=== PATIENT | male | born 1980 | race Caucasian/White ===

== ENCOUNTER 2017-07-28 08:52 | Inpatient (IN) | payer MEDICARE, MEDICAID ==
[~2017-07-28] VITALS: Ht 171.4 cm; Wt 68.2 kg
[~2017-07-28 08:52] MED LIST: AMLO5TAB16 PO; CARV3.12 PO; DILT240C PO; DOXA4TAB3 PO; HYDR-4069 PO; METO-292 PO; ONDA4TAB6 PO; PANT-47 PO
[2017-07-28 10:26] LABS: BASOPHILS % (AUTO) 0.4 % (0-1); EOSINOPHILS # (AUTO) 0.6 X10'3 (0-0.9); EOSINOPHILS % (AUTO) 8.1 % (0-6); HEMATOCRIT 31.7 % (42.0-52.0); HEMOGLOBIN 11.1 g/dl (14.0-17.9); LYMPHOCYTES # (AUTO) 1.8 X10'3 (1.1-4.8); LYMPHOCYTES % (AUTO) 25.7 % (21-51); MEAN CORPUSCULAR HEMOGLOBIN 32.8 PG (27.0-31.0); MEAN CORPUSCULAR VOLUME 93.8 FL (78-98); MEAN PLATELET VOLUME 7.7 FL (7.4-10.4); MONOCYTES # (AUTO) 0.6 X10'3 (0-0.9); MONOCYTES % (AUTO) 8.3 % (2-12); NEUTROPHILS % (AUTO) 57.5 % (42-75); PLATELET COUNT 213 X10'3 (140-440); RED BLOOD COUNT 3.38 X10'6 (4.70-6.10); RED CELL DISTRIBUTION WIDTH 13.2 % (11.5-14.5)
[2017-07-28 10:41] LABS: ALANINE AMINOTRANSFERASE 61 U/L (12-78); ALBUMIN 3.6 G/DL (3.4-5.0); ALBUMIN/GLOBULIN RATIO 0.9 (1.1-1.5); ALKALINE PHOSPHATASE 88 IU/L (46-116); ANION GAP 13 (8-16); ASPARTATE AMINO TRANSFERASE 15 U/L (10-37); BILIRUBIN,TOTAL 0.4 MG/DL (0.1-1.0); BLOOD UREA NITROGEN 84 MG/DL (7-18); BUN/CREATININE RATIO 6.9 (5.4-32.0); CALCIUM 7.8 MG/DL (8.5-10.1); CHLORIDE 99 MMOL/L (99-107); CREATININE 12.21 MG/DL (0.60-1.10); GLUCOSE 102 MG/DL (70-104); MAGNESIUM 3.5 MG/DL (1.5-2.4); SODIUM 136 MMOL/L (135-145); TOTAL CARBON DIOXIDE 24.2 MMOL/L (24-32); TOTAL PROTEIN 7.4 G/DL (6.4-8.2); eGFR 5 ML/MIN
[2017-07-28 10:43] LABS: POTASSIUM 7.6 MMOL/L (3.5-5.1)
[2017-07-28] MEDS ORDERED: sodium bicarbonate (0.9mEq/ml) 44.6 mEq/50ml syringe IV ONE (10:55)
[2017-07-28] MEDS ORDERED: dextrose 50%-water 50ml dispensing syringe IV ONE (10:55)
[2017-07-28] MEDS ORDERED: insulin regular, human 10 units/0.1 ml syringe IV ONE (10:55)
[2017-07-28] MEDS ORDERED: sodium polystyrene sulfonate 15gm/60ml oral suspension PO ONE (10:55)
[2017-07-28] MEDS ORDERED: sodium bicarbonate (8.4%) 1 mEq/ml syringe IV ONE (11:15)
[2017-07-28] MEDS ORDERED: acetaminophen 325mg tablet PO PRN (11:25)
[2017-07-28] MEDS ORDERED: heparin 1,000unit/ml 10ml vial 10 ML IV ONE (11:27)
[2017-07-28] MEDS ORDERED: normal saline 1000ml 250 ML IV PRN (11:27)
[2017-07-28] MEDS ORDERED: epoetin 20,000 units/ml inj IV ONE (11:30)
[2017-07-28] MEDS ORDERED: LIDOcaine 1% (10mg/ml) 2ml vial SQ ONE (11:30)
[2017-07-28] MEDS ORDERED: VALS80TA26 (12:00)
[2017-07-28] MEDS ORDERED: HYDR-3964 (12:00)
[2017-07-28] MEDS ORDERED: DILT360C30 (12:00)
[2017-07-28] MEDS ORDERED: ondansetron/PF 4mg/2ml inj IV ONE (13:05)
[2017-07-28 13:40] VITALS: BP 160/74
[2017-07-28] MEDS: HYDROcodone/acetaminophen 5mg/325mg tablet PO PRN ×2 (13:50→20:35)
[2017-07-28 15:00] VITALS: BP 139/68
[2017-07-28 19:00] VITALS: BP 136/87
[2017-07-28] MEDS: heparin, porcine 5000 units/ml vial SQ SCH (20:35)
[2017-07-28 23:00] VITALS: BP 176/70
[2017-07-29 03:00] VITALS: BP 122/70
[2017-07-29 06:20] LABS: BASOPHILS % (AUTO) 0.4 % (0-1); EOSINOPHILS # (AUTO) 0.5 X10'3 (0-0.9); HEMATOCRIT 32.2 % (42.0-52.0); HEMOGLOBIN 11.3 g/dl (14.0-17.9); LYMPHOCYTES # (AUTO) 2.2 X10'3 (1.1-4.8); LYMPHOCYTES % (AUTO) 33.5 % (21-51); MEAN CORPUSCULAR HEMOGLOBIN 32.9 PG (27.0-31.0); MEAN PLATELET VOLUME 7.9 FL (7.4-10.4); MONOCYTES # (AUTO) 0.6 X10'3 (0-0.9); MONOCYTES % (AUTO) 8.9 % (2-12); NEUTROPHILS # (AUTO) 3.3 X10'3 (1.8-7.7); NEUTROPHILS % (AUTO) 50.2 % (42-75); PLATELET COUNT 208 X10'3 (140-440); RED BLOOD COUNT 3.42 X10'6 (4.70-6.10); RED CELL DISTRIBUTION WIDTH 13.3 % (11.5-14.5); WHITE BLOOD COUNT 6.6 X10'3 (4.5-11.0)
[2017-07-29 06:32] LABS: ALANINE AMINOTRANSFERASE 56 U/L (12-78); ALBUMIN 3.3 G/DL (3.4-5.0); ALBUMIN/GLOBULIN RATIO 0.9 (1.1-1.5); ALKALINE PHOSPHATASE 85 IU/L (46-116); ANION GAP 10 (8-16); ASPARTATE AMINO TRANSFERASE 18 U/L (10-37); BILIRUBIN,TOTAL 0.4 MG/DL (0.1-1.0); BLOOD UREA NITROGEN 46 MG/DL (7-18); BUN/CREATININE RATIO 5.6 (5.4-32.0); CALCIUM 7.8 MG/DL (8.5-10.1); CHLORIDE 100 MMOL/L (99-107); CREATININE 8.17 MG/DL (0.60-1.10); GLUCOSE 88 MG/DL (70-104); SODIUM 138 MMOL/L (135-145); TOTAL CARBON DIOXIDE 28.1 MMOL/L (24-32); TOTAL PROTEIN 7.1 G/DL (6.4-8.2); eGFR 7 ML/MIN
[2017-07-29 07:00] VITALS: BP 136/91
[2017-07-29] MEDS: ondansetron/PF 4mg/2ml inj IV PRN ×2 (07:05→16:46)
[2017-07-29] MEDS: heparin, porcine 5000 units/ml vial SQ SCH ×2 (07:57→20:54)
[2017-07-29] MEDS ORDERED: heparin 1,000unit/ml 10ml vial 10 ML IV ONE (08:48)
[2017-07-29] MEDS ORDERED: normal saline 1000ml 250 ML IV PRN (08:48)
[2017-07-29] MEDS ORDERED: LIDOcaine 1% (10mg/ml) 2ml vial SQ ONE (08:50)
[2017-07-29] MEDS ORDERED: epoetin 20,000 units/ml inj IV ONE (08:50)
[2017-07-29] MEDS: HYDROcodone/acetaminophen 5mg/325mg tablet PO PRN (08:52)
[2017-07-29] MEDS ORDERED: ondansetron 4mg rapidly disintigrating tab PO PRN (10:30)
[2017-07-29] MEDS ORDERED: HYDROcodone/acetaminophen 5mg/325mg tablet PO PRN (10:30)
[2017-07-29 11:00] VITALS: BP 151/86
[2017-07-29] MEDS: valsartan 80mg tablet PO SCH (12:00)
[2017-07-29] MEDS: diltiazem CD 180mg cap (once-daily) PO SCH (12:00)
[2017-07-29 15:00] VITALS: BP 165/102
[2017-07-29] MEDS ORDERED: diltiazem CD 180mg cap (once-daily) PO ONE (15:50)
[2017-07-29] MEDS ORDERED: valsartan 80mg tablet PO ONE (15:50)
[2017-07-29 18:00] VITALS: BP 144/90
[2017-07-29 22:00] VITALS: BP 141/79
[2017-07-30 02:00] VITALS: BP 138/60
[2017-07-30] MEDS: ondansetron/PF 4mg/2ml inj IV PRN ×2 (05:45→14:12)
[2017-07-30 06:00] VITALS: BP 162/85
[2017-07-30 06:01] LABS: BASOPHILS % (AUTO) 0.5 % (0-1); EOSINOPHILS # (AUTO) 0.5 X10'3 (0-0.9); EOSINOPHILS % (AUTO) 7.4 % (0-6); LYMPHOCYTES # (AUTO) 2.1 X10'3 (1.1-4.8); LYMPHOCYTES % (AUTO) 31.1 % (21-51); MEAN CORPUSCULAR HEMOGLOBIN 33.2 PG (27.0-31.0); MEAN CORPUSCULAR HGB CONC 35.2 % (33.0-36.5); MEAN CORPUSCULAR VOLUME 94.5 FL (78-98); MEAN PLATELET VOLUME 7.6 FL (7.4-10.4); MONOCYTES # (AUTO) 0.6 X10'3 (0-0.9); MONOCYTES % (AUTO) 9.1 % (2-12); NEUTROPHILS # (AUTO) 3.5 X10'3 (1.8-7.7); NEUTROPHILS % (AUTO) 51.9 % (42-75); PLATELET COUNT 243 X10'3 (140-440); RED BLOOD COUNT 3.92 X10'6 (4.70-6.10); RED CELL DISTRIBUTION WIDTH 13.5 % (11.5-14.5); WHITE BLOOD COUNT 6.8 X10'3 (4.5-11.0)
[2017-07-30] MEDS: HYDROcodone/acetaminophen 5mg/325mg tablet PO PRN ×2 (06:16→12:33)
[2017-07-30 06:23] LABS: ALANINE AMINOTRANSFERASE 76 U/L (12-78); ALBUMIN 3.8 G/DL (3.4-5.0); ALBUMIN/GLOBULIN RATIO 0.8 (1.1-1.5); ALKALINE PHOSPHATASE 93 IU/L (46-116); ANION GAP 12 (8-16); ASPARTATE AMINO TRANSFERASE 27 U/L (10-37); BILIRUBIN,TOTAL 0.5 MG/DL (0.1-1.0); BLOOD UREA NITROGEN 34 MG/DL (7-18); BUN/CREATININE RATIO 4.8 (5.4-32.0); CALCIUM 9.1 MG/DL (8.5-10.1); CHLORIDE 99 MMOL/L (99-107); CREATININE 7.15 MG/DL (0.60-1.10); GLUCOSE 89 MG/DL (70-104); POTASSIUM 5.2 MMOL/L (3.5-5.1); SODIUM 139 MMOL/L (135-145); TOTAL PROTEIN 8.4 G/DL (6.4-8.2); eGFR 9 ML/MIN
[2017-07-30] MEDS: valsartan 80mg tablet PO SCH (08:15)
[2017-07-30] MEDS: diltiazem CD 180mg cap (once-daily) PO SCH (08:15)
[2017-07-30] MEDS: heparin, porcine 5000 units/ml vial SQ SCH (08:17)
[2017-07-30 11:00] VITALS: BP 152/83
[2017-07-30] MEDS ORDERED: DIO80T PO (13:13)
[2017-07-30 13:25] LABS: HBSAG SCREEN Negative (Negative)
== END 2017-07-30 15:02 | disposition home or self-care (01) | DRG 640 ==
LOC: ER 08:53 → ED HOLD 11:22 → EDBEDREQ 12:32 → PCU 3S 13:49
PROC: 5A1D70Z Performance of Urinary Filtration, Intermittent, Less than 6 Hours Per Day (ICD-10-PCS; 2017-07-28)
PROC: 5A1D70Z Performance of Urinary Filtration, Intermittent, Less than 6 Hours Per Day (ICD-10-PCS; principal; 2017-07-29)
DX: E87.5 Hyperkalemia (principal); N18.6 End stage renal disease; I12.0 Hypertensive chronic kidney disease with stage 5 chronic kidney disease or end stage renal disease; F31.30 Bipolar disorder, current episode depressed, mild or moderate severity, unspecified; F41.9 Anxiety disorder, unspecified; G89.29 Other chronic pain; M54.9 Dorsalgia, unspecified; J40 Bronchitis, not specified as acute or chronic; B19.20 Unspecified viral hepatitis C without hepatic coma; F15.90 Other stimulant use, unspecified, uncomplicated; Z99.2 Dependence on renal dialysis; Z56.0 Unemployment, unspecified; Z91.15 Patient's noncompliance with renal dialysis; Z88.6 Allergy status to analgesic agent; Z88.1 Allergy status to other antibiotic agents; Z88.8 Allergy status to other drugs, medicaments and biological substances; Z80.9 Family history of malignant neoplasm, unspecified; Z80.6 Family history of leukemia; Z82.0 Family history of epilepsy and other diseases of the nervous system; Z82.49 Family history of ischemic heart disease and other diseases of the circulatory system
CPT/HCPCS: 36415; 71046; 80053; 82948; 83735; 85025; 87070; 87340; 93005; 99291; A6402; G0257; J0885; J1644; J1815; J2405; J3490; J7030

== ENCOUNTER 2017-10-16 19:56 | Emergency (ER) | payer MEDICARE, MEDICAID ==
[~2017-10-16] VITALS: Ht 172.7 cm; Wt 71.0 kg
[~2017-10-16 19:56] MED LIST changes: -AMLO5TAB16 PO; -CARV3.12 PO; -DILT240C PO; +DILT360C30; +DIO80T PO; -DOXA4TAB3 PO; +HYDR-3964; -HYDR-4069 PO; -METO-292 PO; -PANT-47 PO; +VALS80TA31
[2017-10-16 23:52] LABS: BASOPHILS % (AUTO) 0.5 % (0-1); EOSINOPHILS # (AUTO) 0.2 X10'3 (0-0.9); EOSINOPHILS % (AUTO) 3.7 % (0-6); HEMATOCRIT 36.8 % (42.0-52.0); HEMOGLOBIN 12.5 g/dl (14.0-17.9); LYMPHOCYTES # (AUTO) 2.1 X10'3 (1.1-4.8); LYMPHOCYTES % (AUTO) 33.9 % (21-51); MEAN CORPUSCULAR HEMOGLOBIN 32.6 PG (27.0-31.0); MEAN CORPUSCULAR HGB CONC 33.9 % (33.0-36.5); MEAN CORPUSCULAR VOLUME 96.3 FL (78-98); MEAN PLATELET VOLUME 8.4 FL (7.4-10.4); MONOCYTES # (AUTO) 0.5 X10'3 (0-0.9); MONOCYTES % (AUTO) 8.7 % (2-12); NEUTROPHILS # (AUTO) 3.3 X10'3 (1.8-7.7); NEUTROPHILS % (AUTO) 53.2 % (42-75); PLATELET COUNT 194 X10'3 (140-440); RED BLOOD COUNT 3.82 X10'6 (4.70-6.10); RED CELL DISTRIBUTION WIDTH 13.1 % (11.5-14.5); WHITE BLOOD COUNT 6.3 X10'3 (4.5-11.0)
[2017-10-16 23:53] LABS: ALANINE AMINOTRANSFERASE 59 U/L (12-78); ALBUMIN 3.8 G/DL (3.4-5.0); ALBUMIN/GLOBULIN RATIO 0.9 (1.1-1.5); ALKALINE PHOSPHATASE 96 IU/L (46-116); ANION GAP 6 (8-16); ASPARTATE AMINO TRANSFERASE 21 U/L (10-37); BILIRUBIN,TOTAL 0.4 MG/DL (0.1-1.0); BLOOD UREA NITROGEN 18 MG/DL (7-18); CALCIUM 8.8 MG/DL (8.5-10.1); CHLORIDE 101 MMOL/L (99-107); CREATININE 5.94 MG/DL (0.60-1.10); GLUCOSE 112 MG/DL (70-104); MAGNESIUM 2.5 MG/DL (1.5-2.4); POTASSIUM 4.1 MMOL/L (3.5-5.1); SODIUM 140 MMOL/L (135-145); TOTAL CARBON DIOXIDE 33.5 MMOL/L (24-32); TOTAL PROTEIN 7.9 G/DL (6.4-8.2); eGFR 11 ML/MIN
[2017-10-17 00:16] VITALS: BP 184/104
== END 2017-10-17 00:20 | disposition home or self-care (01) ==
LOC: ER 19:56
DX: I12.0 Hypertensive chronic kidney disease with stage 5 chronic kidney disease or end stage renal disease (principal); N18.6 End stage renal disease; G89.29 Other chronic pain; F15.10 Other stimulant abuse, uncomplicated; Z56.0 Unemployment, unspecified; Z87.891 Personal history of nicotine dependence; Z88.5 Allergy status to narcotic agent; Z88.8 Allergy status to other drugs, medicaments and biological substances; Z88.1 Allergy status to other antibiotic agents; Z98.890 Other specified postprocedural states; Z99.2 Dependence on renal dialysis
CPT/HCPCS: 36415; 80053; 83735; 84100; 85025; 93005; 99285

== ENCOUNTER 2017-10-31 13:53 | Emergency (ER) | payer MEDICARE, MEDICAID ==
[~2017-10-31] VITALS: Ht 167.6 cm; Wt 78.0 kg
[2017-10-31] MEDS ORDERED: LORazepam 2 mg/ml vial IV ONE (14:10)
[2017-10-31] MEDS ORDERED: ondansetron/PF 4mg/2ml inj IV ONE (14:15)
[2017-10-31] MEDS ORDERED: ketorolac trometh. 30mg/ml inj. IV ONE (14:40)
[2017-10-31 14:47] LABS: BASOPHILS % (AUTO) 0.3 % (0-1); EOSINOPHILS # (AUTO) 0.2 X10'3 (0-0.9); EOSINOPHILS % (AUTO) 2.6 % (0-6); HEMATOCRIT 31.7 % (42.0-52.0); HEMOGLOBIN 11.1 g/dl (14.0-17.9); LYMPHOCYTES # (AUTO) 1.2 X10'3 (1.1-4.8); LYMPHOCYTES % (AUTO) 16.8 % (21-51); MEAN CORPUSCULAR HEMOGLOBIN 33.2 PG (27.0-31.0); MEAN PLATELET VOLUME 8.2 FL (7.4-10.4); MONOCYTES # (AUTO) 0.4 X10'3 (0-0.9); MONOCYTES % (AUTO) 6.1 % (2-12); NEUTROPHILS # (AUTO) 5.3 X10'3 (1.8-7.7); NEUTROPHILS % (AUTO) 74.2 % (42-75); PLATELET COUNT 229 X10'3 (140-440); RED BLOOD COUNT 3.34 X10'6 (4.70-6.10); RED CELL DISTRIBUTION WIDTH 12.9 % (11.5-14.5); WHITE BLOOD COUNT 7.2 X10'3 (4.5-11.0)
[2017-10-31 14:56] LABS: PARTIAL THROMBOPLASTIN TIME 24 SECONDS (22-32); PROTHROMBIN TIME 10.7 SECONDS (9.0-12.0)
[2017-10-31 15:00] LABS: ALANINE AMINOTRANSFERASE 64 U/L (12-78); ALBUMIN 3.9 G/DL (3.4-5.0); ALKALINE PHOSPHATASE 94 IU/L (46-116); ANION GAP 14 (8-16); ASPARTATE AMINO TRANSFERASE 20 U/L (10-37); BILIRUBIN,TOTAL 0.4 MG/DL (0.1-1.0); BLOOD UREA NITROGEN 34 MG/DL (7-18); BUN/CREATININE RATIO 4.2 (5.4-32.0); CALCIUM 8.8 MG/DL (8.5-10.1); CHLORIDE 102 MMOL/L (99-107); CREATININE 8.17 MG/DL (0.60-1.10); GLUCOSE 102 MG/DL (70-104); MAGNESIUM 2.3 MG/DL (1.5-2.4); POTASSIUM 3.9 MMOL/L (3.5-5.1); SODIUM 143 MMOL/L (135-145); TOTAL CARBON DIOXIDE 26.7 MMOL/L (24-32); TOTAL PROTEIN 7.8 G/DL (6.4-8.2); eGFR 7 ML/MIN
[2017-10-31] MEDS ORDERED: acetaminophen 325mg tablet PO ONE (15:40)
[2017-10-31 18:08] VITALS: BP 122/68
== END 2017-10-31 18:10 | disposition home or self-care (01) ==
LOC: ER 13:53
DX: I12.9 Hypertensive chronic kidney disease with stage 1 through stage 4 chronic kidney disease, or unspecified chronic kidney disease (principal); N18.9 Chronic kidney disease, unspecified; G89.29 Other chronic pain; F15.90 Other stimulant use, unspecified, uncomplicated; Z98.890 Other specified postprocedural states; Z86.19 Personal history of other infectious and parasitic diseases; Z56.0 Unemployment, unspecified; Z88.5 Allergy status to narcotic agent; Z88.8 Allergy status to other drugs, medicaments and biological substances; Z88.1 Allergy status to other antibiotic agents; Z79.899 Other long term (current) drug therapy; Z99.2 Dependence on renal dialysis
CPT/HCPCS: 36415; 71045; 80053; 83735; 84484; 85025; 85610; 85730; 93005; 96374; 96375; 99285; J1885; J2060; J2405

== ENCOUNTER 2018-03-13 13:04 | Inpatient (IN) | payer MEDICARE, MEDICAID ==
[~2018-03-13] VITALS: Ht 180.3 cm; Wt 75.8 kg
[~2018-03-13 13:04] MED LIST changes: -VALS80TA31; +VALS80TA32 PO
[2018-03-13 14:17] LABS: BASOPHILS # (AUTO) 0.1 X10'3 (0-0.2); BASOPHILS % (AUTO) 0.7 % (0-1); EOSINOPHILS # (AUTO) 0.3 X10'3 (0-0.9); EOSINOPHILS % (AUTO) 3.2 % (0-6); HEMATOCRIT 27.1 % (42.0-52.0); HEMOGLOBIN 9.3 g/dl (14.0-17.9); LYMPHOCYTES # (AUTO) 1.8 X10'3 (1.1-4.8); LYMPHOCYTES % (AUTO) 21.8 % (21-51); MEAN CORPUSCULAR HEMOGLOBIN 32.8 PG (27.0-31.0); MEAN CORPUSCULAR HGB CONC 34.5 % (33.0-36.5); MEAN CORPUSCULAR VOLUME 95.1 FL (78-98); MEAN PLATELET VOLUME 8.2 FL (7.4-10.4); MONOCYTES # (AUTO) 0.4 X10'3 (0-0.9); MONOCYTES % (AUTO) 4.6 % (2-12); NEUTROPHILS # (AUTO) 5.5 X10'3 (1.8-7.7); NEUTROPHILS % (AUTO) 69.7 % (42-75); PLATELET COUNT 183 X10'3 (140-440); RED BLOOD COUNT 2.85 X10'6 (4.70-6.10); RED CELL DISTRIBUTION WIDTH 13.1 % (11.5-14.5); WHITE BLOOD COUNT 8.1 X10'3 (4.5-11.0)
[2018-03-13 14:30] LABS: ALANINE AMINOTRANSFERASE 37 U/L (12-78); ALBUMIN 3.1 G/DL (3.4-5.0); ALBUMIN/GLOBULIN RATIO 0.9 (1.1-1.5); ALKALINE PHOSPHATASE 74 IU/L (46-116); ANION GAP 13 (8-16); ASPARTATE AMINO TRANSFERASE 12 U/L (10-37); BILIRUBIN,TOTAL 0.3 MG/DL (0.1-1.0); BLOOD UREA NITROGEN 88 MG/DL (7-18); BUN/CREATININE RATIO 7.6 (5.4-32.0); CALCIUM 7.7 MG/DL (8.5-10.1); CHLORIDE 102 MMOL/L (99-107); CREATININE 11.53 MG/DL (0.60-1.10); GLUCOSE 116 MG/DL (70-104); PHOSPHORUS 7.1 MG/DL (2.3-4.5); SODIUM 139 MMOL/L (135-145); TOTAL CARBON DIOXIDE 24.3 MMOL/L (24-32); TOTAL PROTEIN 6.4 G/DL (6.4-8.2); eGFR 5 ML/MIN
[2018-03-13 14:33] LABS: POTASSIUM 7.2 MMOL/L (3.5-5.1)
[2018-03-13] MEDS ORDERED: insulin regular, human 10 units/0.1 ml syringe IV ONE (14:40)
[2018-03-13] MEDS ORDERED: dextrose 50%-water 50ml dispensing syringe IV ONE (14:40)
[2018-03-13] MEDS ORDERED: calcium gluconate inj. 1 GM in normal saline 100ml IV soln 100 ML IV ONE (15:00)
[2018-03-13] MEDS ORDERED: normal saline 1000ml 250 ML IV PRN (15:06)
[2018-03-13] MEDS ORDERED: LIDOcaine 1% (10mg/ml) 2ml vial SQ ONE (15:10)
[2018-03-13] MEDS ORDERED: DILT180C PO (16:05)
[2018-03-13] MEDS ORDERED: CALC667T5 PO (16:10)
[2018-03-13] MEDS ORDERED: DOXA2TAB2 PO (16:10)
[2018-03-13] MEDS ORDERED: DOCU-28 PO (16:10)
[2018-03-13] MEDS ORDERED: VALS320T2 PO (16:10)
[2018-03-13] MEDS ORDERED: POLY17PO10 PO (16:11)
[2018-03-13] MEDS ORDERED: PANT20TA2 PO (16:12)
[2018-03-13 18:00] VITALS: BP 184/99
[2018-03-13] MEDS ORDERED: HYDROcodone/acetaminophen 5mg/325mg tablet PO ONE (18:50)
[2018-03-13 20:15] VITALS: BP 155/87
[2018-03-13 21:42] LABS: ALBUMIN 3.1 G/DL (3.4-5.0); ANION GAP 7 (8-16); BLOOD UREA NITROGEN 40 MG/DL (7-18); BUN/CREATININE RATIO 6.2 (5.4-32.0); CALCIUM 7.9 MG/DL (8.5-10.1); CHLORIDE 100 MMOL/L (99-107); CREATININE 6.42 MG/DL (0.60-1.10); GLUCOSE 123 MG/DL (70-104); POTASSIUM 3.6 MMOL/L (3.5-5.1); SODIUM 139 MMOL/L (135-145); eGFR 10 ML/MIN
[2018-03-13 22:00] VITALS: BP 183/99
[2018-03-14] VITALS (8 sets, daily range): BP systolic 136–190; BP diastolic 76–109
[2018-03-14] MEDS ORDERED: losartan 50mg tablet PO ONE (07:40)
[2018-03-14 08:45] LABS: ALANINE AMINOTRANSFERASE 42 U/L (12-78); ALBUMIN 3.2 G/DL (3.4-5.0); ALBUMIN/GLOBULIN RATIO 0.9 (1.1-1.5); ALKALINE PHOSPHATASE 81 IU/L (46-116); ANION GAP 9 (8-16); ASPARTATE AMINO TRANSFERASE 17 U/L (10-37); BILIRUBIN,TOTAL 0.3 MG/DL (0.1-1.0); BLOOD UREA NITROGEN 48 MG/DL (7-18); BUN/CREATININE RATIO 5.9 (5.4-32.0); CALCIUM 7.9 MG/DL (8.5-10.1); CHLORIDE 101 MMOL/L (99-107); CREATININE 8.08 MG/DL (0.60-1.10); GLUCOSE 114 MG/DL (70-104); MAGNESIUM 2.4 MG/DL (1.5-2.4); POTASSIUM 5.7 MMOL/L (3.5-5.1); SODIUM 140 MMOL/L (135-145); TOTAL CARBON DIOXIDE 29.6 MMOL/L (24-32); TOTAL PROTEIN 6.9 G/DL (6.4-8.2); eGFR 8 ML/MIN
[2018-03-14] MEDS ORDERED: HYDROcodone/acetaminophen 5mg/325mg tablet PO ONE (10:20)
[2018-03-14 11:25] LABS: PHOSPHORUS 7.1 MG/DL (2.3-4.5)
[2018-03-14] MEDS: ondansetron/PF 4mg/2ml inj IV PRN (11:47)
[2018-03-14] MEDS: pantoprazole 40mg Tablet.DR PO SCH (11:59)
[2018-03-14] MEDS: heparin, porcine 5000 units/ml vial SQ SCH ×2 (11:59→19:57)
[2018-03-14] MEDS ORDERED: polyethylene glycol 3350 17gm powd pack PO PRN (12:20)
[2018-03-14] MEDS ORDERED: calcium acetate 667mg (PhosLO) capsule PO PRN (12:20)
[2018-03-14] MEDS ORDERED: normal saline 1000ml 250 ML IV PRN (15:53)
[2018-03-14] MEDS ORDERED: heparin 1,000unit/ml 10ml vial 10 ML IV ONE (15:53)
[2018-03-14] MEDS: diltiazem CD 180mg cap (once-daily) PO SCH (16:18)
[2018-03-14] MEDS: doxazosin mesylate 2mg tablet PO SCH (16:19)
[2018-03-14] MEDS: HYDROcodone/acetaminophen 5mg/325mg tablet PO PRN (19:56)
[2018-03-14] MEDS: docusate sod 100mg capsule PO SCH (19:56)
[2018-03-14] MEDS ORDERED: diphenhydrAMINE 25mg capsule PO PRN (20:55)
[2018-03-15 03:00] VITALS: BP 144/87
[2018-03-15 05:49] LABS: BASOPHILS % (AUTO) 0.4 % (0-1); EOSINOPHILS # (AUTO) 0.6 X10'3 (0-0.9); EOSINOPHILS % (AUTO) 10.8 % (0-6); HEMATOCRIT 26.8 % (42.0-52.0); HEMOGLOBIN 9.5 g/dl (14.0-17.9); LYMPHOCYTES # (AUTO) 2.3 X10'3 (1.1-4.8); LYMPHOCYTES % (AUTO) 41.8 % (21-51); MEAN CORPUSCULAR HEMOGLOBIN 33.4 PG (27.0-31.0); MEAN CORPUSCULAR HGB CONC 35.3 % (33.0-36.5); MEAN CORPUSCULAR VOLUME 94.8 FL (78-98); MEAN PLATELET VOLUME 8.9 FL (7.4-10.4); MONOCYTES # (AUTO) 0.5 X10'3 (0-0.9); MONOCYTES % (AUTO) 9.2 % (2-12); NEUTROPHILS # (AUTO) 2.1 X10'3 (1.8-7.7); NEUTROPHILS % (AUTO) 37.8 % (42-75); PLATELET COUNT 156 X10'3 (140-440); RED BLOOD COUNT 2.83 X10'6 (4.70-6.10); RED CELL DISTRIBUTION WIDTH 12.9 % (11.5-14.5); WHITE BLOOD COUNT 5.5 X10'3 (4.5-11.0)
[2018-03-15 06:01] LABS: INR 1.1 INR; PARTIAL THROMBOPLASTIN TIME 27 SECONDS (22-32); PROTHROMBIN TIME 10.9 SECONDS (9.0-12.0)
[2018-03-15 06:18] LABS: ALANINE AMINOTRANSFERASE 39 U/L (12-78); ALBUMIN 2.8 G/DL (3.4-5.0); ALBUMIN/GLOBULIN RATIO 0.8 (1.1-1.5); ALKALINE PHOSPHATASE 72 IU/L (46-116); ANION GAP 12 (8-16); ASPARTATE AMINO TRANSFERASE 14 U/L (10-37); BILIRUBIN,TOTAL 0.2 MG/DL (0.1-1.0); BLOOD UREA NITROGEN 63 MG/DL (7-18); BUN/CREATININE RATIO 6.3 (5.4-32.0); CALCIUM 7.1 MG/DL (8.5-10.1); CHLORIDE 102 MMOL/L (99-107); CREATININE 10.01 MG/DL (0.60-1.10); GLUCOSE 87 MG/DL (70-104); MAGNESIUM 2.6 MG/DL (1.5-2.4); PHOSPHORUS 8.5 MG/DL (2.3-4.5); POTASSIUM 5.5 MMOL/L (3.5-5.1); SODIUM 140 MMOL/L (135-145); TOTAL CARBON DIOXIDE 26.2 MMOL/L (24-32); TOTAL PROTEIN 6.2 G/DL (6.4-8.2); TROPONIN I < 0.04 NG/ML (0.0-0.05); eGFR 6 ML/MIN
[2018-03-15 07:00] VITALS: BP 144/84
[2018-03-15 07:54] VITALS: BP 163/94
[2018-03-15] MEDS: docusate sod 100mg capsule PO SCH (07:56)
[2018-03-15] MEDS: pantoprazole 40mg Tablet.DR PO SCH (07:56)
[2018-03-15] MEDS: diltiazem CD 180mg cap (once-daily) PO SCH (07:57)
[2018-03-15] MEDS: HYDROcodone/acetaminophen 5mg/325mg tablet PO PRN (07:58)
[2018-03-15] MEDS: doxazosin mesylate 2mg tablet PO SCH (07:58)
[2018-03-15] MEDS ORDERED: losartan 50mg tablet PO SCH (08:00)
[2018-03-15] MEDS: heparin, porcine 5000 units/ml vial SQ SCH (08:05)
[2018-03-15] MEDS ORDERED: LIDOcaine 1% (10mg/ml) 2ml vial SQ ONE (08:20)
[2018-03-15] MEDS: ondansetron/PF 4mg/2ml inj IV PRN (10:42)
[2018-03-15 11:00] VITALS: BP 164/102
[2018-03-15] MEDS ORDERED: calcium acetate 667mg (PhosLO) capsule PO SCH (13:00)
[2018-03-15] MEDS ORDERED: PHO667C PO (13:41)
[2018-03-15 14:40] VITALS: BP 166/97
== END 2018-03-15 14:59 | disposition home or self-care (01) | DRG 640 ==
LOC: ER 13:04 → ED HOLD 15:13 → PCU 3S 16:29
PROVIDERS: ADMIT Emergency Medicine; ATTEND Internal Medicine Critical Care Medicine
PROC: 5A1D70Z Performance of Urinary Filtration, Intermittent, Less than 6 Hours Per Day (ICD-10-PCS; principal; 2018-03-13)
PROC: 5A1D70Z Performance of Urinary Filtration, Intermittent, Less than 6 Hours Per Day (ICD-10-PCS; 2018-03-15)
DX: E87.5 Hyperkalemia (principal); N18.6 End stage renal disease; I12.0 Hypertensive chronic kidney disease with stage 5 chronic kidney disease or end stage renal disease; E83.39 Other disorders of phosphorus metabolism; K21.9 Gastro-esophageal reflux disease without esophagitis; G89.29 Other chronic pain; F41.9 Anxiety disorder, unspecified; E87.70 Fluid overload, unspecified; F32.9 Major depressive disorder, single episode, unspecified; B19.20 Unspecified viral hepatitis C without hepatic coma; I25.2 Old myocardial infarction; Z95.1 Presence of aortocoronary bypass graft; Z99.2 Dependence on renal dialysis; Z79.899 Other long term (current) drug therapy; Z82.49 Family history of ischemic heart disease and other diseases of the circulatory system; Z80.6 Family history of leukemia; Z82.0 Family history of epilepsy and other diseases of the nervous system
CPT/HCPCS: 36415; 71045; 80048; 80053; 83735; 84100; 84484; 85025; 85610; 85730; 93005; 93306; 96374; 96375; 99285; G0257; J0610; J1644; J1815; J2405; J3490; J7030; Q0163

== ENCOUNTER 2018-04-03 09:19 | Inpatient (IN) | payer MEDICARE, MEDICAID ==
[~2018-04-03] VITALS: Ht 175.3 cm; Wt 70.1 kg
[~2018-04-03 09:19] MED LIST changes: +DILT180C PO; -DILT360C30; -DIO80T PO; +DOCU-28 PO; +DOXA2TAB2 PO; +PANT20TA2 PO; +PHO667C PO; +POLY17PO10 PO; +VALS320T2 PO; -VALS80TA32 PO
[2018-04-03 09:51] LABS: BASOPHILS % (AUTO) 0.6 % (0-1); EOSINOPHILS # (AUTO) 0.8 X10'3 (0-0.9); HEMATOCRIT 26.2 % (42.0-52.0); HEMOGLOBIN 8.8 g/dl (14.0-17.9); LYMPHOCYTES # (AUTO) 2.1 X10'3 (1.1-4.8); LYMPHOCYTES % (AUTO) 27.7 % (21-51); MEAN CORPUSCULAR HEMOGLOBIN 31.7 PG (27.0-31.0); MEAN CORPUSCULAR HGB CONC 33.5 % (33.0-36.5); MEAN CORPUSCULAR VOLUME 94.7 FL (78-98); MEAN PLATELET VOLUME 7.6 FL (7.4-10.4); MONOCYTES # (AUTO) 0.6 X10'3 (0-0.9); MONOCYTES % (AUTO) 7.9 % (2-12); NEUTROPHILS % (AUTO) 52.8 % (42-75); PLATELET COUNT 219 X10'3 (140-440); RED BLOOD COUNT 2.77 X10'6 (4.70-6.10); RED CELL DISTRIBUTION WIDTH 13.6 % (11.5-14.5); WHITE BLOOD COUNT 7.6 X10'3 (4.5-11.0)
[2018-04-03 10:07] LABS: ALANINE AMINOTRANSFERASE 36 U/L (12-78); ALBUMIN 3.4 G/DL (3.4-5.0); ALBUMIN/GLOBULIN RATIO 0.9 (1.1-1.5); ALKALINE PHOSPHATASE 83 IU/L (46-116); ANION GAP 15 (8-16); ASPARTATE AMINO TRANSFERASE 8 U/L (10-37); BILIRUBIN,TOTAL 0.3 MG/DL (0.1-1.0); BLOOD UREA NITROGEN 97 MG/DL (7-18); BUN/CREATININE RATIO 5.8 (5.4-32.0); CALCIUM 7.8 MG/DL (8.5-10.1); CHLORIDE 101 MMOL/L (99-107); GLUCOSE 92 MG/DL (70-104); MAGNESIUM 3.4 MG/DL (1.5-2.4); PHOSPHORUS 6.5 MG/DL (2.3-4.5); POTASSIUM 5.9 MMOL/L (3.5-5.1); SODIUM 138 MMOL/L (135-145); TOTAL CARBON DIOXIDE 22.2 MMOL/L (24-32); TOTAL PROTEIN 7.1 G/DL (6.4-8.2); eGFR 3 ML/MIN
[2018-04-03] MEDS ORDERED: insulin regular, human 10 units/0.1 ml syringe IV ONE (10:45)
[2018-04-03] MEDS ORDERED: dextrose 50%-water 50ml dispensing syringe IV ONE (10:45)
[2018-04-03] MEDS ORDERED: PHO667C PO (10:45)
[2018-04-03] MEDS ORDERED: normal saline 1000ml 250 ML IV PRN (10:57)
[2018-04-03] MEDS ORDERED: LIDOcaine 1% (10mg/ml) 2ml vial SQ ONE (11:00)
[2018-04-03] MEDS ORDERED: epoetin 20,000 units/ml inj IV ONE (11:00)
[2018-04-03] MEDS ORDERED: heparin 1,000 units/ml 10ml inj IV ONE (11:00)
[2018-04-03] MEDS ORDERED: polyethylene glycol 3350 17gm powd pack PO PRN (12:30)
[2018-04-03 12:40] VITALS: BP 158/81
[2018-04-03] MEDS: ondansetron/PF 4mg/2ml inj IV PRN (14:05)
[2018-04-03] MEDS: HYDROcodone/acetaminophen 5mg/325mg tablet PO PRN ×2 (14:18→20:34)
[2018-04-03] MEDS ORDERED: calcium acetate 667mg (PhosLO) capsule PO SCH (16:00)
[2018-04-03 18:00] VITALS: BP 151/88
[2018-04-03] MEDS: calcium acetate 667mg (PhosLO) capsule PO SCH (18:30)
[2018-04-03] MEDS: docusate sod 100mg capsule PO SCH (20:29)
[2018-04-03] MEDS: heparin, porcine 5000 units/ml vial SQ SCH (20:29)
[2018-04-03 22:00] VITALS: BP 146/83
[2018-04-04] VITALS (7 sets, daily range): BP systolic 147–187; BP diastolic 73–100
[2018-04-04 06:45] LABS: BASOPHILS % (AUTO) 0.4 % (0-1); EOSINOPHILS # (AUTO) 0.7 X10'3 (0-0.9); EOSINOPHILS % (AUTO) 10.5 % (0-6); HEMATOCRIT 26.2 % (42.0-52.0); HEMOGLOBIN 8.8 g/dl (14.0-17.9); LYMPHOCYTES # (AUTO) 1.8 X10'3 (1.1-4.8); LYMPHOCYTES % (AUTO) 28.2 % (21-51); MEAN CORPUSCULAR HEMOGLOBIN 31.7 PG (27.0-31.0); MEAN CORPUSCULAR HGB CONC 33.3 % (33.0-36.5); MEAN PLATELET VOLUME 8.2 FL (7.4-10.4); MONOCYTES # (AUTO) 0.6 X10'3 (0-0.9); NEUTROPHILS # (AUTO) 3.3 X10'3 (1.8-7.7); NEUTROPHILS % (AUTO) 50.9 % (42-75); PLATELET COUNT 206 X10'3 (140-440); RED BLOOD COUNT 2.76 X10'6 (4.70-6.10); RED CELL DISTRIBUTION WIDTH 13.7 % (11.5-14.5); WHITE BLOOD COUNT 6.4 X10'3 (4.5-11.0)
[2018-04-04 07:01] LABS: ALANINE AMINOTRANSFERASE 18 U/L (12-78); ALBUMIN 3.1 G/DL (3.4-5.0); ALBUMIN/GLOBULIN RATIO 0.9 (1.1-1.5); ALKALINE PHOSPHATASE 70 IU/L (46-116); ANION GAP 9 (8-16); ASPARTATE AMINO TRANSFERASE 10 U/L (10-37); BILIRUBIN,TOTAL 0.3 MG/DL (0.1-1.0); BLOOD UREA NITROGEN 40 MG/DL (7-18); CALCIUM 7.8 MG/DL (8.5-10.1); CHLORIDE 104 MMOL/L (99-107); CREATININE 8.01 MG/DL (0.60-1.10); GLUCOSE 90 MG/DL (70-104); MAGNESIUM 2.5 MG/DL (1.5-2.4); POTASSIUM 5.3 MMOL/L (3.5-5.1); SODIUM 142 MMOL/L (135-145); TOTAL CARBON DIOXIDE 28.7 MMOL/L (24-32); TOTAL PROTEIN 6.7 G/DL (6.4-8.2); eGFR 8 ML/MIN
[2018-04-04 07:08] LABS: INR 1.1 INR; PARTIAL THROMBOPLASTIN TIME 27 SECONDS (22-32); PROTHROMBIN TIME 10.8 SECONDS (9.0-12.0)
[2018-04-04] MEDS: diltiazem CD 180mg cap (once-daily) PO SCH (07:27)
[2018-04-04] MEDS: doxazosin mesylate 2mg tablet PO SCH (07:27)
[2018-04-04] MEDS: losartan 50mg tablet PO SCH (07:28)
[2018-04-04] MEDS: calcium acetate 667mg (PhosLO) capsule PO SCH ×3 (07:28→18:31)
[2018-04-04] MEDS: docusate sod 100mg capsule PO SCH ×2 (07:28→20:26)
[2018-04-04] MEDS: heparin, porcine 5000 units/ml vial SQ SCH ×2 (07:29→20:26)
[2018-04-04] MEDS: ondansetron/PF 4mg/2ml inj IV PRN ×2 (07:29→18:31)
[2018-04-04] MEDS ORDERED: VALSARTAN PO SCH (08:00)
[2018-04-04] MEDS ORDERED: normal saline 1000ml 250 ML IV PRN (10:27)
[2018-04-04] MEDS ORDERED: heparin 1,000 units/ml 10ml inj IV ONE (10:30)
[2018-04-04] MEDS ORDERED: LIDOcaine 1% (10mg/ml) 2ml vial SQ ONE (10:30)
[2018-04-04] MEDS ORDERED: epoetin 20,000 units/ml inj IV ONE (10:30)
[2018-04-04] MEDS: HYDROcodone/acetaminophen 5mg/325mg tablet PO PRN ×2 (10:43→22:22)
[2018-04-05 02:10] VITALS: BP 130/78
[2018-04-05 06:00] VITALS: BP 163/95
[2018-04-05] MEDS: ondansetron/PF 4mg/2ml inj IV PRN (06:48)
[2018-04-05 07:47] LABS: BASOPHILS % (AUTO) 0.7 % (0-1); EOSINOPHILS # (AUTO) 0.6 X10'3 (0-0.9); EOSINOPHILS % (AUTO) 10.2 % (0-6); HEMATOCRIT 27.8 % (42.0-52.0); HEMOGLOBIN 9.2 g/dl (14.0-17.9); LYMPHOCYTES # (AUTO) 1.7 X10'3 (1.1-4.8); LYMPHOCYTES % (AUTO) 29.5 % (21-51); MEAN CORPUSCULAR HEMOGLOBIN 31.8 PG (27.0-31.0); MEAN CORPUSCULAR HGB CONC 33.2 % (33.0-36.5); MEAN CORPUSCULAR VOLUME 95.7 FL (78-98); MEAN PLATELET VOLUME 8.2 FL (7.4-10.4); MONOCYTES # (AUTO) 0.7 X10'3 (0-0.9); NEUTROPHILS # (AUTO) 2.7 X10'3 (1.8-7.7); NEUTROPHILS % (AUTO) 47.6 % (42-75); PLATELET COUNT 194 X10'3 (140-440); RED CELL DISTRIBUTION WIDTH 13.8 % (11.5-14.5); WHITE BLOOD COUNT 5.7 X10'3 (4.5-11.0)
[2018-04-05 08:01] LABS: PARTIAL THROMBOPLASTIN TIME 26 SECONDS (22-32); PROTHROMBIN TIME 10.6 SECONDS (9.0-12.0)
[2018-04-05 08:05] VITALS: BP 142/84
[2018-04-05 08:13] LABS: ALANINE AMINOTRANSFERASE 39 U/L (12-78); ALBUMIN 3.1 G/DL (3.4-5.0); ALBUMIN/GLOBULIN RATIO 0.8 (1.1-1.5); ALKALINE PHOSPHATASE 69 IU/L (46-116); ANION GAP 7 (8-16); ASPARTATE AMINO TRANSFERASE 18 U/L (10-37); BILIRUBIN,TOTAL 0.2 MG/DL (0.1-1.0); BLOOD UREA NITROGEN 22 MG/DL (7-18); BUN/CREATININE RATIO 3.8 (5.4-32.0); CALCIUM 8.5 MG/DL (8.5-10.1); CHLORIDE 104 MMOL/L (99-107); CREATININE 5.78 MG/DL (0.60-1.10); GLUCOSE 95 MG/DL (70-104); MAGNESIUM 2.4 MG/DL (1.5-2.4); POTASSIUM 4.7 MMOL/L (3.5-5.1); SODIUM 142 MMOL/L (135-145); TOTAL CARBON DIOXIDE 30.8 MMOL/L (24-32); TOTAL PROTEIN 6.9 G/DL (6.4-8.2); eGFR 11 ML/MIN
[2018-04-05] MEDS: diltiazem CD 180mg cap (once-daily) PO SCH (08:14)
[2018-04-05] MEDS: docusate sod 100mg capsule PO SCH ×2 (08:15→20:29)
[2018-04-05] MEDS: doxazosin mesylate 2mg tablet PO SCH (08:15)
[2018-04-05] MEDS: losartan 50mg tablet PO SCH (08:16)
[2018-04-05] MEDS: calcium acetate 667mg (PhosLO) capsule PO SCH ×3 (08:18→18:33)
[2018-04-05] MEDS: heparin, porcine 5000 units/ml vial SQ SCH ×2 (08:19→20:30)
[2018-04-05 10:00] VITALS: BP 141/79
[2018-04-05] MEDS: HYDROcodone/acetaminophen 5mg/325mg tablet PO PRN ×2 (10:05→22:03)
[2018-04-05 18:00] VITALS: BP 138/76
[2018-04-05 22:00] VITALS: BP 140/74
[2018-04-06 05:18] LABS: HBSAG SCREEN Negative (Negative)
[2018-04-06 06:00] VITALS: BP 136/74
[2018-04-06 06:03] LABS: BASOPHILS % (AUTO) 0.6 % (0-1); EOSINOPHILS # (AUTO) 0.7 X10'3 (0-0.9); EOSINOPHILS % (AUTO) 10.7 % (0-6); HEMATOCRIT 26.9 % (42.0-52.0); HEMOGLOBIN 8.9 g/dl (14.0-17.9); LYMPHOCYTES # (AUTO) 1.8 X10'3 (1.1-4.8); LYMPHOCYTES % (AUTO) 27.9 % (21-51); MEAN CORPUSCULAR HEMOGLOBIN 31.9 PG (27.0-31.0); MEAN CORPUSCULAR VOLUME 96.6 FL (78-98); MEAN PLATELET VOLUME 8.5 FL (7.4-10.4); MONOCYTES # (AUTO) 0.6 X10'3 (0-0.9); MONOCYTES % (AUTO) 9.7 % (2-12); NEUTROPHILS # (AUTO) 3.2 X10'3 (1.8-7.7); NEUTROPHILS % (AUTO) 51.1 % (42-75); PLATELET COUNT 201 X10'3 (140-440); RED BLOOD COUNT 2.79 X10'6 (4.70-6.10); RED CELL DISTRIBUTION WIDTH 14.1 % (11.5-14.5); WHITE BLOOD COUNT 6.3 X10'3 (4.5-11.0)
[2018-04-06 06:25] LABS: PARTIAL THROMBOPLASTIN TIME 26 SECONDS (22-32); PROTHROMBIN TIME 10.3 SECONDS (9.0-12.0)
[2018-04-06 06:42] LABS: ALANINE AMINOTRANSFERASE 37 U/L (12-78); ALBUMIN/GLOBULIN RATIO 0.8 (1.1-1.5); ALKALINE PHOSPHATASE 69 IU/L (46-116); ANION GAP 7 (8-16); ASPARTATE AMINO TRANSFERASE 14 U/L (10-37); BILIRUBIN,TOTAL 0.2 MG/DL (0.1-1.0); BLOOD UREA NITROGEN 39 MG/DL (7-18); BUN/CREATININE RATIO 4.7 (5.4-32.0); CALCIUM 8.4 MG/DL (8.5-10.1); CHLORIDE 103 MMOL/L (99-107); CREATININE 8.36 MG/DL (0.60-1.10); GLUCOSE 95 MG/DL (70-104); MAGNESIUM 2.9 MG/DL (1.5-2.4); POTASSIUM 5.1 MMOL/L (3.5-5.1); SODIUM 141 MMOL/L (135-145); TOTAL CARBON DIOXIDE 31.3 MMOL/L (24-32); TOTAL PROTEIN 6.6 G/DL (6.4-8.2); eGFR 7 ML/MIN
[2018-04-06] MEDS: diltiazem CD 180mg cap (once-daily) PO SCH (07:08)
[2018-04-06] MEDS: doxazosin mesylate 2mg tablet PO SCH (07:09)
[2018-04-06] MEDS: ondansetron/PF 4mg/2ml inj IV PRN (07:09)
[2018-04-06] MEDS: calcium acetate 667mg (PhosLO) capsule PO SCH ×2 (07:09→13:00)
[2018-04-06] MEDS: docusate sod 100mg capsule PO SCH (07:09)
[2018-04-06] MEDS: losartan 50mg tablet PO SCH (07:09)
[2018-04-06] MEDS: heparin, porcine 5000 units/ml vial SQ SCH (07:10)
[2018-04-06] MEDS ORDERED: heparin 1,000 units/ml 10ml inj IV ONE (08:30)
[2018-04-06] MEDS ORDERED: albumin (human) 25% 100ml IV 100 ML IV PRN (08:30)
[2018-04-06] MEDS ORDERED: heparin 1,000unit/ml 10ml vial 10 ML IV ONE (08:30)
[2018-04-06] MEDS ORDERED: epoetin 20,000 units/ml inj IV ONE (08:30)
[2018-04-06] MEDS ORDERED: LIDOcaine 1% (10mg/ml) 2ml vial SQ ONE (09:50)
[2018-04-06] MEDS: HYDROcodone/acetaminophen 5mg/325mg tablet PO PRN (10:19)
[2018-04-06 11:42] VITALS: BP 144/87
== END 2018-04-06 16:45 | disposition home or self-care (01) | DRG 640 ==
LOC: ER 09:20 → ORTHO 4S 11:57 → ER 11:57 → ORTHO 4S 13:20
PROVIDERS: ADMIT Internal Medicine Critical Care Medicine; ATTEND Internal Medicine Critical Care Medicine
PROC: 5A1D70Z Performance of Urinary Filtration, Intermittent, Less than 6 Hours Per Day (ICD-10-PCS; 2018-04-03)
PROC: 5A1D70Z Performance of Urinary Filtration, Intermittent, Less than 6 Hours Per Day (ICD-10-PCS; 2018-04-04)
PROC: 5A1D70Z Performance of Urinary Filtration, Intermittent, Less than 6 Hours Per Day (ICD-10-PCS; principal; 2018-04-06)
DX: E87.5 Hyperkalemia (principal); N18.6 End stage renal disease; I12.0 Hypertensive chronic kidney disease with stage 5 chronic kidney disease or end stage renal disease; E83.39 Other disorders of phosphorus metabolism; E83.41 Hypermagnesemia; K74.60 Unspecified cirrhosis of liver; L29.9 Pruritus, unspecified; B19.20 Unspecified viral hepatitis C without hepatic coma; F15.90 Other stimulant use, unspecified, uncomplicated; F32.9 Major depressive disorder, single episode, unspecified; F41.9 Anxiety disorder, unspecified; G43.A0 Cyclical vomiting, in migraine, not intractable; G89.29 Other chronic pain; K72.90 Hepatic failure, unspecified without coma; M54.9 Dorsalgia, unspecified; Z99.2 Dependence on renal dialysis; Z88.1 Allergy status to other antibiotic agents; Z88.5 Allergy status to narcotic agent; Z79.899 Other long term (current) drug therapy; Z80.6 Family history of leukemia; Z82.0 Family history of epilepsy and other diseases of the nervous system; Z82.49 Family history of ischemic heart disease and other diseases of the circulatory system
CPT/HCPCS: 36415; 70450; 70544; 70551; 71045; 80053; 82948; 83735; 84100; 85025; 85610; 85730; 87070; 87340; 90935; 93005; 96374; 96375; 97116; 97162; 99285; G0257; G0378; J0885; J1644; J1815; J2405; J3490

== ENCOUNTER 2018-06-07 17:08 | Inpatient (IN) | payer OTHER, MEDICAID, MEDICARE | END 2018-06-10 14:54 | LOC: ER 17:08 → ED HOLD 20:04 → SUR 3N 22:20 | PROC: 0D568ZZ Destruction of Stomach, Via Natural or Artificial Opening Endoscopic (ICD-10-PCS; principal; ~2018-06-07) | DX: K31.811 Angiodysplasia of stomach and duodenum with bleeding (principal); N18.6 End stage renal disease; D62 Acute posthemorrhagic anemia; I12.0 Hypertensive chronic kidney disease with stage 5 chronic kidney disease or end stage renal disease; K22.70 Barrett's esophagus without dysplasia ==

== ENCOUNTER 2018-07-12 21:45 | Inpatient (IN) | payer MEDICARE, MEDICAID ==
[~2018-07-12] VITALS: Ht 174 cm; Wt 78.5 kg
[~2018-07-12 21:45] MED LIST changes: +CARV12.5 PO; -DILT180C PO; +DILT240C PO; -DOXA2TAB2 PO; -HYDR-3964; +LOSA25TA96 PO; -ONDA4TAB6 PO; +OSEL30CA PO; +PANT-47 PO; -PANT20TA2 PO; -VALS320T2 PO
--- NOTE | 2018-07-13 03:18 | NUR ---
Pt arrived. pt nauseous and vomited 100mL in emesis bag. received bed side report from Lennie QUIROZ from [place]. pt in bed now. no signs of distress. will continue to monitor.
[2018-07-13 03:29] VITALS: BP 170/96
[2018-07-13] MEDS ORDERED: ondansetron/PF 4mg/2ml inj IV PRN (03:50)
[2018-07-13] MEDS ORDERED: acetaminophen 325mg tablet PO PRN (03:50)
[2018-07-13] MEDS: acetaminophen 325mg tablet PO PRN ×2 (04:16→14:32)
--- NOTE | 2018-07-13 04:30 | NUR ---
Reagan MENDES aware of blood pressure 170/96. Addendum: 07/13/18 at 0445 by Renata Milner RN Reagan Okeefe NP aware of blood pressure 170/96.
--- NOTE | 2018-07-13 04:41 | NUR ---
pt had 14 - $100, 18 - $20, 4-$1. Counted with Morro QUIROZ. pt doesnt want to check in with the safe, says most of the money "is a friends money" and that the friend will pick it up today 2/5. will continue to monitor.
--- NOTE | 2018-07-13 06:21 | NUR ---
Problems reprioritized. Patient report given, questions answered & plan of care reviewed with Blanca QUIROZ. PT resting. no signs of distress. call light and frq used belongings within reach. oncoming nurse introduced to pt. IV intact.
--- NOTE | 2018-07-13 06:33 | NUR ---
Patient in room PCU 3024. I have received report from Renata QUIROZ and had the opportunity to ask questions and assume patient care. Will continue to monitor patient.
[2018-07-13 07:00] VITALS: BP 148/81
[2018-07-13] MEDS ORDERED: carVEDilol 12.5mg tablet PO SCH (08:00)
[2018-07-13] MEDS ORDERED: diltiazem CD 120mg capsule (once-daily) PO SCH (08:00)
[2018-07-13] MEDS ORDERED: losartan 25mg tablet PO SCH (08:00)
[2018-07-13] MEDS ORDERED: docusate sod 100mg capsule PO SCH (08:00)
[2018-07-13] MEDS ORDERED: heparin, porcine 5000 units/ml vial SQ SCH (08:00)
[2018-07-13] MEDS: calcium acetate 667mg (PhosLO) capsule PO SCH ×2 (08:14→15:57)
[2018-07-13] MEDS ORDERED: normal saline 1000ml 250 ML IV PRN (09:03)
[2018-07-13] MEDS ORDERED: heparin 1,000unit/ml 10ml vial 10 ML IV ONE (09:03)
[2018-07-13] MEDS ORDERED: LIDOcaine 1% (10mg/ml) 2ml vial SQ ONE (09:05)
[2018-07-13] MEDS ORDERED: FLU VACC QUAD 2018(5 YR UP)/PF 60 MCG/0.5 ML SYRINGE IM ONE (10:00)
--- NOTE | 2018-07-13 10:30 | NUR ---
Problems reprioritized. Patient report given, questions answered & plan of care reviewed with Tanisha QUIROZ. Patient stable at transfer of care.
--- NOTE | 2018-07-13 10:30 | NUR ---
Patient in room PCU 3024. I have received report from Blanca QUIROZ and had the opportunity to ask questions and assume patient care. Patient resting comfortably in bed. In no acute distress. Will continue to monitor.
[2018-07-13 11:00] VITALS: BP 165/100
[2018-07-13 16:19] VITALS: BP 158/84
--- NOTE | 2018-07-13 16:30 | NUR ---
Patient stable for discharger per MD orders. All discharge instructions reviewed with patient and all questions answered. Patient to have hemodialysis in [address] Villalta's orders. 2 PIV discontinued - cannula's intact. All personal belongings sent with patient in private vehicle to home. Telemetry monitoring discontinued. Patient accompanied by RN to parking lot. Transported home with friend.
--- NOTE | 2018-07-14 09:16 | NUR ---
Pt's d/c'd prior to SS assessment, SS referral closed.
== END 2018-07-13 16:25 | disposition home or self-care (01) | DRG 304 ==
LOC: PCU 3S 07-13 03:09
PROVIDERS: ADMIT Internal Medicine Critical Care Medicine; ATTEND Internal Medicine Critical Care Medicine
PROC: 5A1D70Z Performance of Urinary Filtration, Intermittent, Less than 6 Hours Per Day (ICD-10-PCS; principal; 2018-07-13)
PROC: 3E02340 Introduction of Influenza Vaccine into Muscle, Percutaneous Approach (ICD-10-PCS; 2018-07-13)
DX: I16.0 Hypertensive urgency (principal); N18.6 End stage renal disease; I12.0 Hypertensive chronic kidney disease with stage 5 chronic kidney disease or end stage renal disease; F15.90 Other stimulant use, unspecified, uncomplicated; K21.9 Gastro-esophageal reflux disease without esophagitis; B19.20 Unspecified viral hepatitis C without hepatic coma; F41.9 Anxiety disorder, unspecified; G89.29 Other chronic pain; M54.9 Dorsalgia, unspecified; F17.210 Nicotine dependence, cigarettes, uncomplicated; F31.9 Bipolar disorder, unspecified; Z88.1 Allergy status to other antibiotic agents; Z88.6 Allergy status to analgesic agent; Z88.8 Allergy status to other drugs, medicaments and biological substances; Z23 Encounter for immunization; Z99.2 Dependence on renal dialysis; Z91.15 Patient's noncompliance with renal dialysis; Z56.0 Unemployment, unspecified; Z80.6 Family history of leukemia; Z82.0 Family history of epilepsy and other diseases of the nervous system; Z82.49 Family history of ischemic heart disease and other diseases of the circulatory system; Z80.9 Family history of malignant neoplasm, unspecified
CPT/HCPCS: 87070; G0257; G0378; J1644; J3490; Q2037

== ENCOUNTER 2018-08-10 14:47 | Emergency (ER) | payer MEDICARE, MEDICAID ==
[~2018-08-10] VITALS: Ht 172.7 cm; Wt 76.0 kg
[~2018-08-10 14:47] MED LIST changes: -OSEL30CA PO
--- NOTE | 2018-08-10 15:31 | NUR ---
CINTHYA CHU AT BEDSIDE
[2018-08-10] MEDS ORDERED: LIDOcaine 1.5% w/epinephrine 1:200,000 5ml ampul IJ ONE (15:35)
[2018-08-10 15:39] LABS: BASOPHILS # (AUTO) 0.1 X10'3 (0-0.2); BASOPHILS % (AUTO) 0.6 % (0-1); EOSINOPHILS # (AUTO) 0.6 X10'3 (0-0.9); EOSINOPHILS % (AUTO) 6.1 % (0-6); HEMATOCRIT 41.7 % (42.0-52.0); HEMOGLOBIN 13.7 g/dl (14.0-17.9); LYMPHOCYTES # (AUTO) 1.9 X10'3 (1.1-4.8); MEAN CORPUSCULAR HGB CONC 32.7 g/dL (33.0-36.5); MEAN CORPUSCULAR VOLUME 88.6 FL (78-98); MEAN PLATELET VOLUME 8.9 FL (7.4-10.4); MONOCYTES # (AUTO) 0.6 X10'3 (0-0.9); MONOCYTES % (AUTO) 5.5 % (2-12); NEUTROPHILS # (AUTO) 7.3 X10'3 (1.8-7.7); NEUTROPHILS % (AUTO) 69.8 % (42-75); PLATELET COUNT 180 X10'3 (140-440); RED BLOOD COUNT 4.71 X10'6 (4.70-6.10); RED CELL DISTRIBUTION WIDTH 17.5 % (11.5-14.5); WHITE BLOOD COUNT 10.4 X10'3 (4.5-11.0)
[2018-08-10] MEDS ORDERED: LIDOcaine 1% w/epiNEPHrine 1:200,000 30ml vial IJ ONE (15:40)
[2018-08-10] MEDS ORDERED: BACDS PO (15:53)
[2018-08-10] MEDS ORDERED: OMEP40CA37 PO (15:53)
[2018-08-10 16:14] VITALS: BP 128/74
== END 2018-08-10 16:17 | disposition home or self-care (01) ==
LOC: ER 14:48
DX: L02.414 Cutaneous abscess of left upper limb (principal); R11.0 Nausea; R10.13 Epigastric pain; I10 Essential (primary) hypertension; K21.9 Gastro-esophageal reflux disease without esophagitis; G89.29 Other chronic pain; F15.90 Other stimulant use, unspecified, uncomplicated; Z98.890 Other specified postprocedural states; Z86.19 Personal history of other infectious and parasitic diseases; Z56.0 Unemployment, unspecified; Z88.1 Allergy status to other antibiotic agents; Z88.5 Allergy status to narcotic agent; Z88.8 Allergy status to other drugs, medicaments and biological substances; Z79.2 Long term (current) use of antibiotics; Z79.899 Other long term (current) drug therapy
CPT/HCPCS: 36415; 71045; 85025; 93005; 99284; J3490

== ENCOUNTER 2018-08-28 15:17 | Emergency (ER) | payer MEDICARE, MEDICAID ==
[~2018-08-28 15:17] MED LIST changes: +OMEP40CA37 PO
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
[2018-08-29] MEDS ORDERED: SULF1TAB49 PO (20:46)
== END 2018-08-28 17:28 | disposition left against medical advice (07) ==
LOC: ER 15:17
DX: M25.529 Pain in unspecified elbow (principal); Z53.21 Procedure and treatment not carried out due to patient leaving prior to being seen by health care provider
CPT/HCPCS: 99281

== ENCOUNTER 2018-08-29 18:02 | Emergency (ER) | payer MEDICARE, MEDICAID ==
[~2018-08-29] VITALS: Ht 172.7 cm; Wt 73.0 kg
[2018-08-29] MEDS ORDERED: LIDOcaine Viscous 15ml cup PO ONE (18:55)
[2018-08-29] MEDS ORDERED: sucralfate 1 gm tablet PO ONE (18:55)
[2018-08-29] MEDS ORDERED: mag hydrox/Alum hydrox/simeth 30ml oral suspension PO ONE (18:55)
[2018-08-29 19:37] LABS: BASOPHILS # (AUTO) 0.1 X10'3 (0-0.2); BASOPHILS % (AUTO) 0.6 % (0-1); EOSINOPHILS # (AUTO) 0.5 X10'3 (0-0.9); EOSINOPHILS % (AUTO) 4.6 % (0-6); HEMATOCRIT 34.1 % (42.0-52.0); LYMPHOCYTES # (AUTO) 1.5 X10'3 (1.1-4.8); LYMPHOCYTES % (AUTO) 15.1 % (21-51); MEAN CORPUSCULAR HEMOGLOBIN 28.7 PG (27.0-31.0); MEAN CORPUSCULAR HGB CONC 32.3 g/dL (33.0-36.5); MEAN PLATELET VOLUME 8.5 FL (7.4-10.4); MONOCYTES # (AUTO) 0.7 X10'3 (0-0.9); MONOCYTES % (AUTO) 6.5 % (2-12); NEUTROPHILS # (AUTO) 7.5 X10'3 (1.8-7.7); NEUTROPHILS % (AUTO) 73.2 % (42-75); PLATELET COUNT 214 X10'3 (140-440); RED BLOOD COUNT 3.84 X10'6 (4.70-6.10); WHITE BLOOD COUNT 10.2 X10'3 (4.5-11.0)
[2018-08-29 19:51] LABS: ALANINE AMINOTRANSFERASE 40 U/L (12-78); ALBUMIN 3.4 G/DL (3.4-5.0); ALBUMIN/GLOBULIN RATIO 0.9 (1.1-1.5); ALKALINE PHOSPHATASE 73 IU/L (46-116); ANION GAP 10 (8-16); ASPARTATE AMINO TRANSFERASE 23 U/L (10-37); BILIRUBIN,TOTAL 0.2 MG/DL (0.1-1.0); BLOOD UREA NITROGEN 64 MG/DL (7-18); BUN/CREATININE RATIO 5.3 (5.4-32.0); CALCIUM 8.9 MG/DL (8.5-10.1); CHLORIDE 100 MMOL/L (99-107); CREATININE 12.16 MG/DL (0.60-1.10); GLUCOSE 93 MG/DL (70-104); POTASSIUM 5.6 MMOL/L (3.5-5.1); SODIUM 137 MMOL/L (135-145); TOTAL CARBON DIOXIDE 26.7 MMOL/L (24-32); eGFR 5 ML/MIN
[2018-08-29] MEDS ORDERED: LIDOcaine 1% w/epiNEPHrine 1:200,000 30ml vial IM ONE (20:00)
[2018-08-29] MEDS ORDERED: SULF1TAB49 PO (20:46)
[2018-08-29 21:02] VITALS: BP 140/84
== END 2018-08-29 21:04 | disposition home or self-care (01) ==
LOC: ER 18:03
DX: R10.13 Epigastric pain (principal); L02.414 Cutaneous abscess of left upper limb; K21.9 Gastro-esophageal reflux disease without esophagitis; I12.0 Hypertensive chronic kidney disease with stage 5 chronic kidney disease or end stage renal disease; N18.6 End stage renal disease; Z99.2 Dependence on renal dialysis; G89.29 Other chronic pain; F15.90 Other stimulant use, unspecified, uncomplicated; Z88.1 Allergy status to other antibiotic agents; Z88.5 Allergy status to narcotic agent; Z88.8 Allergy status to other drugs, medicaments and biological substances; Z98.890 Other specified postprocedural states; Z79.899 Other long term (current) drug therapy; Z56.0 Unemployment, unspecified
CPT/HCPCS: 10061; 36415; 71045; 80053; 85025; 93005; 99284; J3490

== ENCOUNTER 2018-09-15 07:29 | Emergency (ER) | payer MEDICARE, MEDICAID ==
[~2018-09-15] VITALS: Ht 175.3 cm; Wt 70.5 kg
[~2018-09-15 07:29] MED LIST changes: -OMEP40CA37 PO
[2018-09-15] MEDS ORDERED: LORazepam 2 mg/ml vial IV ONE (07:50)
[2018-09-15] MEDS ORDERED: diphenhydrAMINE 50 mg/ml inj IV ONE (07:50)
[2018-09-15] MEDS ORDERED: metoclopramide 5 mg/ml inj IV ONE (07:50)
[2018-09-15] MEDS ORDERED: morphine 4 MG/ML inj SYRINge IV ONE (08:40)
[2018-09-15 09:54] VITALS: BP 199/95
== END 2018-09-15 10:20 | disposition home or self-care (01) ==
LOC: ER 07:29
DX: R51 Headache (principal); R11.2 Nausea with vomiting, unspecified; I12.9 Hypertensive chronic kidney disease with stage 1 through stage 4 chronic kidney disease, or unspecified chronic kidney disease; N18.9 Chronic kidney disease, unspecified; K21.9 Gastro-esophageal reflux disease without esophagitis; G89.29 Other chronic pain; M54.9 Dorsalgia, unspecified; F17.200 Nicotine dependence, unspecified, uncomplicated; F12.90 Cannabis use, unspecified, uncomplicated; Z56.0 Unemployment, unspecified; Z99.2 Dependence on renal dialysis; Z88.6 Allergy status to analgesic agent; Z88.1 Allergy status to other antibiotic agents; Z88.8 Allergy status to other drugs, medicaments and biological substances
CPT/HCPCS: 70450; 96374; 96375; 99284; J1200; J2060; J2270; J2765

== ENCOUNTER 2018-09-17 09:27 | Emergency (ER) | payer MEDICARE, MEDICAID ==
[~2018-09-17] VITALS: Ht 172.7 cm; Wt 75.5 kg
[2018-09-17 09:30] VITALS: BP 186/112
== END 2018-09-17 10:39 | disposition home or self-care (01) ==
LOC: ER 09:28
DX: T82.838A Hemorrhage due to vascular prosthetic devices, implants and grafts, initial encounter (principal); L02.414 Cutaneous abscess of left upper limb; I12.0 Hypertensive chronic kidney disease with stage 5 chronic kidney disease or end stage renal disease; N18.6 End stage renal disease; K21.9 Gastro-esophageal reflux disease without esophagitis; B19.20 Unspecified viral hepatitis C without hepatic coma; G89.29 Other chronic pain; F15.90 Other stimulant use, unspecified, uncomplicated; Z99.2 Dependence on renal dialysis; Z95.1 Presence of aortocoronary bypass graft; Z56.0 Unemployment, unspecified
CPT/HCPCS: 99281

== ENCOUNTER 2018-12-19 16:18 | Emergency (ER) | payer MEDICARE, MEDICAID ==
[~2018-12-19] VITALS: Ht 175.3 cm; Wt 70.0 kg
[2018-12-19] MEDS ORDERED: nitroGLYCERIN 1gm ointment UD TP ONE (17:00)
[2018-12-19] MEDS: nitroGLYCERIN 0.4mg SUBLingual tab SL PRN ×2 (17:02→17:11)
[2018-12-19 17:05] LABS: BASOPHILS # (AUTO) 0.1 X10'3 (0-0.2); BASOPHILS % (AUTO) 1.1 % (0-1); EOSINOPHILS # (AUTO) 0.4 X10'3 (0-0.9); EOSINOPHILS % (AUTO) 6.9 % (0-6); HEMOGLOBIN 11.1 g/dl (14.0-17.9); LYMPHOCYTES # (AUTO) 1.3 X10'3 (1.1-4.8); LYMPHOCYTES % (AUTO) 22.5 % (21-51); MEAN CORPUSCULAR HEMOGLOBIN 31.4 PG (27.0-31.0); MEAN CORPUSCULAR HGB CONC 33.6 g/dL (33.0-36.5); MEAN CORPUSCULAR VOLUME 93.5 FL (78-98); MEAN PLATELET VOLUME 8.4 FL (7.4-10.4); MONOCYTES # (AUTO) 0.5 X10'3 (0-0.9); MONOCYTES % (AUTO) 8.9 % (2-12); NEUTROPHILS # (AUTO) 3.5 X10'3 (1.8-7.7); NEUTROPHILS % (AUTO) 60.6 % (42-75); PLATELET COUNT 135 X10'3 (140-440); RED BLOOD COUNT 3.53 X10'6 (4.70-6.10); RED CELL DISTRIBUTION WIDTH 17.8 % (11.5-14.5); WHITE BLOOD COUNT 5.8 X10'3 (4.5-11.0)
[2018-12-19] MEDS ORDERED: morphine 4 MG/ML inj SYRINge IV ONE (17:05)
[2018-12-19 17:16] LABS: PARTIAL THROMBOPLASTIN TIME 31 SECONDS (22-32)
[2018-12-19 17:17] LABS: ALANINE AMINOTRANSFERASE 47 U/L (12-78); ALBUMIN 3.6 G/DL (3.4-5.0); ALBUMIN/GLOBULIN RATIO 0.9 (1.1-1.5); ALKALINE PHOSPHATASE 61 IU/L (46-116); ANION GAP 7 (8-16); ASPARTATE AMINO TRANSFERASE 30 U/L (10-37); BILIRUBIN,TOTAL 0.6 MG/DL (0.1-1.0); BLOOD UREA NITROGEN 35 MG/DL (7-18); CALCIUM 8.6 MG/DL (8.5-10.1); CHLORIDE 100 MMOL/L (99-107); GLUCOSE 106 MG/DL (70-104); POTASSIUM 4.4 MMOL/L (3.5-5.1); SODIUM 139 MMOL/L (135-145); TOTAL CARBON DIOXIDE 32.1 MMOL/L (24-32); TOTAL PROTEIN 7.6 G/DL (6.4-8.2); eGFR 7 ML/MIN
[2018-12-19] MEDS ORDERED: ketorolac trometh. 30mg/ml inj. IV ONE (18:00)
[2018-12-19] MEDS ORDERED: ISOS30TA10 PO (18:24)
[2018-12-19 18:41] VITALS: BP 166/89
== END 2018-12-19 18:45 | disposition home or self-care (01) ==
LOC: ER 16:19
DX: R07.89 Other chest pain (principal); I13.2 Hypertensive heart and chronic kidney disease with heart failure and with stage 5 chronic kidney disease, or end stage renal disease; N18.6 End stage renal disease; I50.9 Heart failure, unspecified; E78.00 Pure hypercholesterolemia, unspecified; K21.9 Gastro-esophageal reflux disease without esophagitis; G89.29 Other chronic pain; F41.9 Anxiety disorder, unspecified; F31.9 Bipolar disorder, unspecified; F15.90 Other stimulant use, unspecified, uncomplicated; Z98.890 Other specified postprocedural states; Z99.2 Dependence on renal dialysis; Z95.1 Presence of aortocoronary bypass graft; Z56.0 Unemployment, unspecified; Z88.1 Allergy status to other antibiotic agents; Z79.2 Long term (current) use of antibiotics; Z79.899 Other long term (current) drug therapy
CPT/HCPCS: 36415; 71045; 80053; 84484; 85025; 85610; 85730; 93005; 96374; 96375; 99284; J1885; J2270

== ENCOUNTER 2018-12-31 16:51 | Emergency (ER) | payer MEDICARE, MEDICAID ==
[~2018-12-31] VITALS: Ht 172.7 cm; Wt 72.5 kg
[~2018-12-31 16:51] MED LIST changes: +DILT-94 PO; -DILT240C PO; +ISOS30TA10 PO
[2018-12-31 17:23] VITALS: BP 157/70
[2018-12-31 18:25] LABS: BASOPHILS # (AUTO) 0.1 X10'3 (0-0.2); BASOPHILS % (AUTO) 0.9 % (0-1); EOSINOPHILS # (AUTO) 0.5 X10'3 (0-0.9); EOSINOPHILS % (AUTO) 6.9 % (0-6); HEMATOCRIT 30.7 % (42.0-52.0); HEMOGLOBIN 10.4 g/dl (14.0-17.9); LYMPHOCYTES # (AUTO) 2.2 X10'3 (1.1-4.8); LYMPHOCYTES % (AUTO) 30.3 % (21-51); MEAN CORPUSCULAR VOLUME 94.2 FL (78-98); MEAN PLATELET VOLUME 7.9 FL (7.4-10.4); MONOCYTES # (AUTO) 0.7 X10'3 (0-0.9); MONOCYTES % (AUTO) 10.2 % (2-12); NEUTROPHILS # (AUTO) 3.7 X10'3 (1.8-7.7); NEUTROPHILS % (AUTO) 51.7 % (42-75); PLATELET COUNT 158 X10'3 (140-440); RED BLOOD COUNT 3.26 X10'6 (4.70-6.10); RED CELL DISTRIBUTION WIDTH 18.2 % (11.5-14.5); WHITE BLOOD COUNT 7.1 X10'3 (4.5-11.0)
[2018-12-31 18:35] LABS: PARTIAL THROMBOPLASTIN TIME 30 SECONDS (22-32)
[2018-12-31 18:52] LABS: ALANINE AMINOTRANSFERASE 40 U/L (12-78); ALBUMIN 3.5 G/DL (3.4-5.0); ALBUMIN/GLOBULIN RATIO 0.9 (1.1-1.5); ALKALINE PHOSPHATASE 64 IU/L (46-116); ANION GAP 10 (8-16); ASPARTATE AMINO TRANSFERASE 26 U/L (10-37); BILIRUBIN,TOTAL 0.3 MG/DL (0.1-1.0); BLOOD UREA NITROGEN 33 MG/DL (7-18); BUN/CREATININE RATIO 3.9 (5.4-32.0); CALCIUM 8.7 MG/DL (8.5-10.1); CHLORIDE 102 MMOL/L (99-107); CREATININE 8.42 MG/DL (0.60-1.10); GLUCOSE 103 MG/DL (70-104); POTASSIUM 3.8 MMOL/L (3.5-5.1); SODIUM 144 MMOL/L (135-145); TOTAL CARBON DIOXIDE 31.8 MMOL/L (24-32); TOTAL PROTEIN 7.2 G/DL (6.4-8.2); eGFR 7 ML/MIN
== END 2018-12-31 20:21 | disposition left against medical advice (07) ==
LOC: ER 16:52
DX: R07.89 Other chest pain (principal); R06.02 Shortness of breath; R53.83 Other fatigue; Z53.21 Procedure and treatment not carried out due to patient leaving prior to being seen by health care provider; Z79.899 Other long term (current) drug therapy
CPT/HCPCS: 36415; 71045; 80053; 84484; 85025; 85610; 85730; 93005

== ENCOUNTER 2019-01-26 12:35 | Emergency (ER) | payer MEDICARE, MEDICAID ==
[~2019-01-26] VITALS: Ht 172.7 cm; Wt 71.3 kg
[2019-01-26] MEDS ORDERED: ondansetron/PF 4mg/2ml inj IV ONE (14:25)
[2019-01-26] MEDS ORDERED: normal saline 1000ML IV soln IVB ONE (14:25)
[2019-01-26 15:04] LABS: BASOPHILS # (AUTO) 0.1 X10'3 (0-0.2); BASOPHILS % (AUTO) 1.1 % (0-1); EOSINOPHILS # (AUTO) 0.5 X10'3 (0-0.9); EOSINOPHILS % (AUTO) 7.2 % (0-6); HEMATOCRIT 35.3 % (42.0-52.0); HEMOGLOBIN 11.8 g/dl (14.0-17.9); LYMPHOCYTES # (AUTO) 1.4 X10'3 (1.1-4.8); LYMPHOCYTES % (AUTO) 19.5 % (21-51); MEAN CORPUSCULAR HEMOGLOBIN 31.3 PG (27.0-31.0); MEAN CORPUSCULAR HGB CONC 33.4 g/dL (33.0-36.5); MEAN CORPUSCULAR VOLUME 93.9 FL (78-98); MEAN PLATELET VOLUME 8.7 FL (7.4-10.4); MONOCYTES # (AUTO) 0.9 X10'3 (0-0.9); MONOCYTES % (AUTO) 12.2 % (2-12); NEUTROPHILS # (AUTO) 4.5 X10'3 (1.8-7.7); PLATELET COUNT 188 X10'3 (140-440); RED BLOOD COUNT 3.76 X10'6 (4.70-6.10); RED CELL DISTRIBUTION WIDTH 17.9 % (11.5-14.5); WHITE BLOOD COUNT 7.4 X10'3 (4.5-11.0)
[2019-01-26] MEDS ORDERED: hydrALAZINE 20mg/ml inj. IV ONE (15:25)
--- NOTE | 2019-01-26 15:26 | NUR ---
Jerome Martinez gave verbal order for hydralizine while in room. Primary RN informed of new order.
[2019-01-26 15:27] LABS: ALANINE AMINOTRANSFERASE 34 U/L (12-78); ALBUMIN 3.6 G/DL (3.4-5.0); ALBUMIN/GLOBULIN RATIO 0.9 (1.1-1.5); ALKALINE PHOSPHATASE 74 IU/L (46-116); ANION GAP 6 (8-16); ASPARTATE AMINO TRANSFERASE 28 U/L (10-37); BILIRUBIN,TOTAL 0.5 MG/DL (0.1-1.0); BLOOD UREA NITROGEN 39 MG/DL (7-18); BUN/CREATININE RATIO 4.6 (5.4-32.0); CALCIUM 9.5 MG/DL (8.5-10.1); CHLORIDE 101 MMOL/L (99-107); CREATININE 8.42 MG/DL (0.60-1.10); GLUCOSE 93 MG/DL (70-104); POTASSIUM 5.1 MMOL/L (3.5-5.1); SODIUM 138 MMOL/L (135-145); TOTAL CARBON DIOXIDE 30.6 MMOL/L (24-32); TOTAL PROTEIN 7.7 G/DL (6.4-8.2); eGFR 7 ML/MIN
[2019-01-26 15:51] VITALS: BP 196/93
== END 2019-01-26 15:56 | disposition home or self-care (01) ==
LOC: ER 12:36
DX: H53.9 Unspecified visual disturbance (principal); H57.11 Ocular pain, right eye; R20.2 Paresthesia of skin; R11.2 Nausea with vomiting, unspecified; I10 Essential (primary) hypertension; F31.9 Bipolar disorder, unspecified; F41.9 Anxiety disorder, unspecified; G89.29 Other chronic pain; I13.0 Hypertensive heart and chronic kidney disease with heart failure and stage 1 through stage 4 chronic kidney disease, or unspecified chronic kidney disease; N18.9 Chronic kidney disease, unspecified; I50.9 Heart failure, unspecified; K21.9 Gastro-esophageal reflux disease without esophagitis; E78.00 Pure hypercholesterolemia, unspecified; F15.90 Other stimulant use, unspecified, uncomplicated; Z87.19 Personal history of other diseases of the digestive system; Z86.19 Personal history of other infectious and parasitic diseases; Z56.0 Unemployment, unspecified; Z88.1 Allergy status to other antibiotic agents; Z79.899 Other long term (current) drug therapy; Z88.6 Allergy status to analgesic agent; Z99.2 Dependence on renal dialysis
CPT/HCPCS: 36415; 70450; 71045; 80053; 82948; 85025; 85610; 93005; 96374; 96375; 99284; J0360; J2405; J7030

== ENCOUNTER 2019-05-11 10:26 | Emergency (ER) | payer MEDICARE, MEDICAID ==
--- NOTE | 2019-05-11 10:41 | NUR ---
PT TOLD ADMITTING THAT HE WAS LEAVING AND GOING TO COME BACK LATER AND LEFT LOBBY FOR PARKING LOT. ATTEMPTED TO CALL PT BACK, PT NOT TO BE SEEN
== END 2019-05-11 10:43 | disposition left against medical advice (07) ==
LOC: ER 10:27
DX: R05 Cough (principal); Z53.21 Procedure and treatment not carried out due to patient leaving prior to being seen by health care provider

== ENCOUNTER 2019-06-06 19:32 | Emergency (ER) | payer MEDICARE, MEDICAID ==
[~2019-06-06] VITALS: Ht 175.3 cm; Wt 59.1 kg
[2019-06-06] MEDS ORDERED: diphenhydrAMINE 50 mg/ml inj IV ONE (20:05)
[2019-06-06] MEDS ORDERED: normal saline 1000ML IV soln IVB ONE ×2 (20:05)
[2019-06-06] MEDS ORDERED: LORazepam 2 mg/ml vial IV ONE ×2 (20:05→21:20)
[2019-06-06] MEDS: metoclopramide 5 mg/ml inj IV ONE ×2 (20:10→20:11)
--- NOTE | 2019-06-06 20:10 | NUR ---
SALINE HELD ON VERBAL BY DR. CACERES PATIENT IS ON DIALYSIS. HE ALSO REQUESTS TO HOLD THE REGLAND AND WILL SUBSTITUTE FOR HALDOL.
[2019-06-06 20:13] LABS: BASOPHILS # (AUTO) 0.1 X10'3 (0-0.2); BASOPHILS % (AUTO) 0.4 % (0-1); EOSINOPHILS # (AUTO) 0.2 X10'3 (0-0.9); EOSINOPHILS % (AUTO) 1.3 % (0-6); HEMATOCRIT 34.3 % (42.0-52.0); HEMOGLOBIN 11.4 g/dl (14.0-17.9); LYMPHOCYTES # (AUTO) 1.4 X10'3 (1.1-4.8); LYMPHOCYTES % (AUTO) 7.7 % (21-51); MEAN CORPUSCULAR HEMOGLOBIN 32.3 PG (27.0-31.0); MEAN CORPUSCULAR HGB CONC 33.1 g/dL (33.0-36.5); MEAN CORPUSCULAR VOLUME 97.5 FL (78-98); MEAN PLATELET VOLUME 8.2 FL (7.4-10.4); MONOCYTES # (AUTO) 1.1 X10'3 (0-0.9); MONOCYTES % (AUTO) 5.8 % (2-12); NEUTROPHILS # (AUTO) 15.6 X10'3 (1.8-7.7); NEUTROPHILS % (AUTO) 84.8 % (42-75); PLATELET COUNT 289 X10'3 (140-440); RED BLOOD COUNT 3.52 X10'6 (4.70-6.10); RED CELL DISTRIBUTION WIDTH 16.4 % (11.5-14.5); WHITE BLOOD COUNT 18.4 X10'3 (4.5-11.0)
[2019-06-06] MEDS ORDERED: haloperidol lactate 5mg/ml inj IM ONE (20:15)
[2019-06-06 20:22] LABS: ALANINE AMINOTRANSFERASE 17 U/L (12-78); ALBUMIN 3.7 G/DL (3.4-5.0); ALBUMIN/GLOBULIN RATIO 0.8 (1.1-1.5); ALKALINE PHOSPHATASE 67 IU/L (46-116); ANION GAP 12 (8-16); ASPARTATE AMINO TRANSFERASE 12 U/L (10-37); BILIRUBIN,TOTAL 0.6 MG/DL (0.1-1.0); BLOOD UREA NITROGEN 43 MG/DL (7-18); BUN/CREATININE RATIO 5.6 (5.4-32.0); CALCIUM 9.8 MG/DL (8.5-10.1); CHLORIDE 102 MMOL/L (99-107); CREATININE 7.64 MG/DL (0.60-1.10); GLUCOSE 123 MG/DL (70-104); LIPASE 140 U/L (73-393); SODIUM 140 MMOL/L (135-145); TOTAL CARBON DIOXIDE 26.2 MMOL/L (24-32); TOTAL PROTEIN 8.5 G/DL (6.4-8.2); eGFR 8 ML/MIN
--- NOTE | 2019-06-06 21:39 | NUR ---
Patient resting in bed with family at bedside. He is intermittently sleeping and then groaning in pain. Dr. Austin was notified and an additional 0.5mg of ativan ordered for now. Patient and family updated on POC.
[2019-06-06 22:22] VITALS: BP 180/89
--- NOTE | 2019-06-06 22:34 | NUR ---
Small bowel movement by patient prior to discharge.
== END 2019-06-07 | disposition home or self-care (01) ==
LOC: ER 06-07 13:44
DX: R11.2 Nausea with vomiting, unspecified (principal); M79.602 Pain in left arm; R53.83 Other fatigue; R10.84 Generalized abdominal pain; E78.00 Pure hypercholesterolemia, unspecified; K21.9 Gastro-esophageal reflux disease without esophagitis; I13.2 Hypertensive heart and chronic kidney disease with heart failure and with stage 5 chronic kidney disease, or end stage renal disease; N18.6 End stage renal disease; G89.29 Other chronic pain; F31.9 Bipolar disorder, unspecified; F41.9 Anxiety disorder, unspecified; F17.210 Nicotine dependence, cigarettes, uncomplicated; F15.90 Other stimulant use, unspecified, uncomplicated; Z99.2 Dependence on renal dialysis; Z86.19 Personal history of other infectious and parasitic diseases; Z98.890 Other specified postprocedural states; Z56.0 Unemployment, unspecified; Z88.1 Allergy status to other antibiotic agents; Z88.5 Allergy status to narcotic agent; Z88.8 Allergy status to other drugs, medicaments and biological substances; Z79.899 Other long term (current) drug therapy
CPT/HCPCS: 36415; 71250; 74176; 80053; 83690; 85025; 93005; 96372; 96374; 96375; 96376; 99284; J1200; J1630; J2060; J2765

== ENCOUNTER 2019-06-09 20:26 | Emergency (ER) | payer MEDICARE, MEDICAID ==
[~2019-06-09] VITALS: Ht 175.3 cm; Wt 68.2 kg
--- NOTE | 2019-06-09 21:43 | NUR ---
PATIENT IS ANURIC
[2019-06-09 21:45] LABS: BASOPHILS # (AUTO) 0.1 X10'3 (0-0.2); BASOPHILS % (AUTO) 0.5 % (0-1); EOSINOPHILS # (AUTO) 0.4 X10'3 (0-0.9); EOSINOPHILS % (AUTO) 3.4 % (0-6); HEMATOCRIT 31.2 % (42.0-52.0); HEMOGLOBIN 10.6 g/dl (14.0-17.9); LYMPHOCYTES # (AUTO) 1.7 X10'3 (1.1-4.8); LYMPHOCYTES % (AUTO) 13.3 % (21-51); MEAN CORPUSCULAR HEMOGLOBIN 32.6 PG (27.0-31.0); MEAN CORPUSCULAR HGB CONC 33.8 g/dL (33.0-36.5); MEAN CORPUSCULAR VOLUME 96.5 FL (78-98); MEAN PLATELET VOLUME 8.2 FL (7.4-10.4); MONOCYTES # (AUTO) 1.2 X10'3 (0-0.9); NEUTROPHILS # (AUTO) 9.5 X10'3 (1.8-7.7); NEUTROPHILS % (AUTO) 73.8 % (42-75); PLATELET COUNT 255 X10'3 (140-440); RED BLOOD COUNT 3.24 X10'6 (4.70-6.10); RED CELL DISTRIBUTION WIDTH 15.5 % (11.5-14.5); WHITE BLOOD COUNT 12.8 X10'3 (4.5-11.0)
[2019-06-09 21:56] LABS: ALANINE AMINOTRANSFERASE 15 U/L (12-78); ALBUMIN 3.6 G/DL (3.4-5.0); ALBUMIN/GLOBULIN RATIO 0.8 (1.1-1.5); ALKALINE PHOSPHATASE 66 IU/L (46-116); ANION GAP 7 (8-16); ASPARTATE AMINO TRANSFERASE 10 U/L (10-37); BILIRUBIN,TOTAL 0.5 MG/DL (0.1-1.0); BLOOD UREA NITROGEN 70 MG/DL (7-18); BUN/CREATININE RATIO 7.1 (5.4-32.0); CALCIUM 9.4 MG/DL (8.5-10.1); CHLORIDE 100 MMOL/L (99-107); CREATININE 9.82 MG/DL (0.60-1.10); GLUCOSE 103 MG/DL (70-104); LIPASE 71 U/L (73-393); POTASSIUM 4.3 MMOL/L (3.5-5.1); SODIUM 139 MMOL/L (135-145); eGFR 6 ML/MIN
[2019-06-09] MEDS ORDERED: HYDROcodone/acetaminophen 10/325mg tab PO ONE (22:35)
[2019-06-09 22:54] VITALS: BP 146/75
== END 2019-06-09 22:56 | disposition home or self-care (01) ==
LOC: ER 20:28
DX: S29.012A Strain of muscle and tendon of back wall of thorax, initial encounter (principal); M94.0 Chondrocostal junction syndrome [Tietze]; E78.00 Pure hypercholesterolemia, unspecified; K21.9 Gastro-esophageal reflux disease without esophagitis; G89.29 Other chronic pain; F15.90 Other stimulant use, unspecified, uncomplicated; I13.0 Hypertensive heart and chronic kidney disease with heart failure and stage 1 through stage 4 chronic kidney disease, or unspecified chronic kidney disease; N18.9 Chronic kidney disease, unspecified; I50.9 Heart failure, unspecified; Z99.2 Dependence on renal dialysis; Z56.0 Unemployment, unspecified; Z88.1 Allergy status to other antibiotic agents; Z79.899 Other long term (current) drug therapy; Z87.891 Personal history of nicotine dependence; X50.1XXA Overexertion from prolonged static or awkward postures, initial encounter; Y93.89 Activity, other specified; Y92.89 Other specified places as the place of occurrence of the external cause; Y99.9 Unspecified external cause status
CPT/HCPCS: 36415; 71046; 72070; 80053; 83690; 85025; 99284

== ENCOUNTER 2019-06-20 05:50 | Emergency (ER) | payer MEDICARE, MEDICAID ==
[~2019-06-20] VITALS: Ht 175.3 cm; Wt 71.6 kg
[2019-06-20 06:02] VITALS: BP 183/89
[2019-06-20] MEDS ORDERED: ketorolac tromethamine 15mg/ml inj. IM ONE (06:40)
[2019-06-21] MEDS ORDERED: OMEP40CA13 PO (13:02)
[2019-06-21] MEDS ORDERED: ISON300T21 PO (13:02)
[2019-06-21] MEDS ORDERED: LISI-600 PO (13:02)
[2019-06-21] MEDS ORDERED: DILT300C23 PO (13:03)
[2019-06-21] MEDS ORDERED: MINO10TA16 PO (13:04)
[2019-06-21] MEDS ORDERED: ONDA-103 PO (13:04)
[2019-06-21] MEDS ORDERED: ATOR20TA66 PO (13:06)
[2019-06-21] MEDS ORDERED: HYDR100T27 PO (13:06)
[2019-06-21] MEDS ORDERED: HYDR-3972 PO (13:07)
[2019-06-21] MEDS ORDERED: CLON1PAT16 TD (13:09)
[2019-06-21] MEDS ORDERED: CLON1PAT14 TD (13:09)
[2019-06-21] MEDS ORDERED: ASPI-1130 PO (13:10)
[2019-06-21] MEDS ORDERED: ISOS30TA6 PO (13:11)
== END 2019-06-20 07:00 | disposition home or self-care (01) ==
LOC: ER 05:51
DX: M94.0 Chondrocostal junction syndrome [Tietze] (principal); M54.6 Pain in thoracic spine; J06.9 Acute upper respiratory infection, unspecified; E78.00 Pure hypercholesterolemia, unspecified; K21.9 Gastro-esophageal reflux disease without esophagitis; G89.29 Other chronic pain; F15.90 Other stimulant use, unspecified, uncomplicated; I13.10 Hypertensive heart and chronic kidney disease without heart failure, with stage 1 through stage 4 chronic kidney disease, or unspecified chronic kidney disease; N18.9 Chronic kidney disease, unspecified; Z56.0 Unemployment, unspecified; Z98.890 Other specified postprocedural states; Z99.2 Dependence on renal dialysis; Z88.1 Allergy status to other antibiotic agents; Z88.5 Allergy status to narcotic agent; Z79.899 Other long term (current) drug therapy
CPT/HCPCS: 96372; 99283; J1885

== ENCOUNTER 2019-06-21 09:50 | Inpatient (IN) | payer MEDICARE, MEDICAID ==
[2019-06-21] VITALS (10 sets, daily range): BP systolic 128–184; BP diastolic 64–100
[~2019-06-21] VITALS: Ht 175.3 cm; Wt 70.0 kg
[2019-06-21 10:39] LABS: MEAN CORPUSCULAR VOLUME 96.7 FL (78-98); MEAN PLATELET VOLUME 7.7 FL (7.4-10.4)
[2019-06-21 10:41] LABS: BASOPHILS # (AUTO) 0.1 X10'3 (0-0.2); BASOPHILS % (AUTO) 0.6 % (0-1); EOSINOPHILS # (AUTO) 0.6 X10'3 (0-0.9); EOSINOPHILS % (AUTO) 5.1 % (0-6); HEMATOCRIT 32.5 % (42.0-52.0); LYMPHOCYTES # (AUTO) 1.4 X10'3 (1.1-4.8); LYMPHOCYTES % (AUTO) 12.3 % (21-51); MEAN CORPUSCULAR HEMOGLOBIN 32.8 PG (27.0-31.0); MEAN CORPUSCULAR HGB CONC 33.9 g/dL (33.0-36.5); MONOCYTES # (AUTO) 0.8 X10'3 (0-0.9); MONOCYTES % (AUTO) 6.9 % (2-12); NEUTROPHILS # (AUTO) 8.8 X10'3 (1.8-7.7); NEUTROPHILS % (AUTO) 75.1 % (42-75); PLATELET COUNT 243 X10'3 (140-440); RED BLOOD COUNT 3.36 X10'6 (4.70-6.10); RED CELL DISTRIBUTION WIDTH 15.9 % (11.5-14.5); WHITE BLOOD COUNT 11.7 X10'3 (4.5-11.0)
[2019-06-21 10:53] LABS: ALANINE AMINOTRANSFERASE 20 U/L (12-78); ALBUMIN 3.2 G/DL (3.4-5.0); ALBUMIN/GLOBULIN RATIO 0.7 (1.1-1.5); ALKALINE PHOSPHATASE 62 IU/L (46-116); ANION GAP 6 (8-16); ASPARTATE AMINO TRANSFERASE 11 U/L (10-37); BILIRUBIN,TOTAL 0.4 MG/DL (0.1-1.0); BLOOD UREA NITROGEN 14 MG/DL (7-18); CALCIUM 8.4 MG/DL (8.5-10.1); CHLORIDE 101 MMOL/L (99-107); GLUCOSE 95 MG/DL (70-104); POTASSIUM 3.2 MMOL/L (3.5-5.1); SODIUM 143 MMOL/L (135-145); TOTAL PROTEIN 7.7 G/DL (6.4-8.2)
[2019-06-21 11:00] LABS: MAGNESIUM 2.1 MG/DL (1.5-2.4); TROPONIN I < 0.04 NG/ML (0.0-0.05)
[2019-06-21 11:07] LABS: BUN/CREATININE RATIO 3.3 (5.4-32.0); CREATININE 4.26 MG/DL (0.60-1.10); eGFR 16 ML/MIN
[2019-06-21] MEDS ORDERED: diltiazem-D5W 125mg/125ml 125 ML IV SCH (12:15)
[2019-06-21] MEDS ORDERED: diltiazem-NS 100mg/100ml 100 ML IV SCH (12:25)
[2019-06-21] MEDS ORDERED: ondansetron/PF 4mg/2ml inj IV PRN (12:50)
[2019-06-21] MEDS ORDERED: acetaminophen 325mg tablet PO PRN ×2 (12:50)
[2019-06-21] MEDS ORDERED: morphine 4 MG/ML inj SYRINge IV PRN (12:50)
[2019-06-21] MEDS ORDERED: morphine 2 MG/ML inj. syringe IV PRN (12:50)
[2019-06-21] MEDS ORDERED: LISI-600 PO (13:02)
[2019-06-21] MEDS ORDERED: OMEP40CA13 PO (13:02)
[2019-06-21] MEDS ORDERED: ISON300T21 PO (13:02)
[2019-06-21] MEDS ORDERED: DILT300C23 PO (13:03)
[2019-06-21] MEDS ORDERED: ONDA-103 PO (13:04)
[2019-06-21] MEDS ORDERED: MINO10TA16 PO (13:04)
[2019-06-21] MEDS ORDERED: ATOR20TA66 PO (13:06)
[2019-06-21] MEDS ORDERED: HYDR100T27 PO (13:06)
[2019-06-21] MEDS ORDERED: HYDR-3972 PO (13:07)
[2019-06-21] MEDS ORDERED: CLON1PAT16 TD (13:09)
[2019-06-21] MEDS ORDERED: CLON1PAT14 TD (13:09)
[2019-06-21] MEDS ORDERED: ASPI-1130 PO (13:10)
[2019-06-21] MEDS ORDERED: ISOS30TA6 PO (13:11)
--- NOTE | 2019-06-21 13:35 | NUR ---
Received report from Ed nurse, GABRIELLA Davis regarding this patient. Reports that patient will be admitted for diagnosis of Hypertensive Encephalopathy.
[2019-06-21] MEDS: niCARDipine-NS 40mg/200ml IVPB 200 ML IV PRN (14:35)
[2019-06-21] MEDS: HYDROcodone/acetaminophen 10/325mg tab PO PRN ×2 (14:44→20:12)
[2019-06-21] MEDS ORDERED: HYDROcodone/acetaminophen 10/325mg tab PO PRN (15:10)
[2019-06-21] MEDS: isosorbide mononitrate 30mg tab.SR.24H PO SCH (15:10)
[2019-06-21] MEDS ORDERED: non-formulary drug (Ondansetron HCl 1 TAB) PO PRN (15:10)
--- NOTE | 2019-06-21 15:41 | NUR ---
Per Dr. Dillon, Keep SBP between 170-180, Do not allow blood pressure to drop too quickly. I decreased the rate as shown in IV spreadsheet.
[2019-06-21] MEDS: aspirin 81mg tablet.DR PO SCH (16:28)
--- NOTE | 2019-06-21 18:30 | NUR ---
Problems reprioritized. Patient report given, questions answered & plan of care reviewed with [].
--- NOTE | 2019-06-21 18:52 | NUR ---
Patient in room ICU 2043. I have received report from Regi QUIROZ and had the opportunity to ask questions and assume patient care.
[2019-06-21] MEDS: calcium acetate 667mg (PhosLO) capsule PO SCH (18:59)
[2019-06-21] MEDS: hyDRALAzine 10mg tablet PO SCH (20:13)
[2019-06-21] MEDS: docusate sod 100mg capsule PO SCH (20:13)
[2019-06-21] MEDS: heparin, porcine 5000 units/ml vial SQ SCH (20:14)
[2019-06-21] MEDS: lisinopril 20mg tablet PO SCH (20:14)
[2019-06-21] MEDS: carVEDilol 12.5mg tablet PO SCH (20:14)
[2019-06-21] MEDS ORDERED: sennosides/docusate sodium tablet PO SCH (21:00)
[2019-06-22] VITALS (18 sets, daily range): BP systolic 141–197; BP diastolic 83–109
[2019-06-22] MEDS: niCARDipine-NS 40mg/200ml IVPB 200 ML IV PRN ×2 (01:34→03:50)
--- NOTE | 2019-06-22 01:35 | NUR ---
Cardene gtt restarted at this time for BP of 191/102. Parameter is to keep SBP between 170-190.
--- NOTE | 2019-06-22 02:05 | NUR ---
Cardene drip stopped at this time for BP of 149/90.
[2019-06-22 05:12] LABS: BASOPHILS # (AUTO) 0.1 X10'3 (0-0.2); BASOPHILS % (AUTO) 0.8 % (0-1); EOSINOPHILS # (AUTO) 0.6 X10'3 (0-0.9); HEMATOCRIT 36.2 % (42.0-52.0); HEMOGLOBIN 12.1 g/dl (14.0-17.9); LYMPHOCYTES # (AUTO) 1.8 X10'3 (1.1-4.8); LYMPHOCYTES % (AUTO) 18.6 % (21-51); MEAN CORPUSCULAR HEMOGLOBIN 32.7 PG (27.0-31.0); MEAN CORPUSCULAR HGB CONC 33.5 g/dL (33.0-36.5); MEAN CORPUSCULAR VOLUME 97.6 FL (78-98); MEAN PLATELET VOLUME 8.3 FL (7.4-10.4); MONOCYTES # (AUTO) 0.9 X10'3 (0-0.9); MONOCYTES % (AUTO) 9.5 % (2-12); NEUTROPHILS # (AUTO) 6.2 X10'3 (1.8-7.7); NEUTROPHILS % (AUTO) 65.1 % (42-75); PLATELET COUNT 238 X10'3 (140-440); RED BLOOD COUNT 3.71 X10'6 (4.70-6.10); RED CELL DISTRIBUTION WIDTH 15.9 % (11.5-14.5); WHITE BLOOD COUNT 9.5 X10'3 (4.5-11.0)
[2019-06-22 05:42] LABS: ALANINE AMINOTRANSFERASE 22 U/L (12-78); ALBUMIN 2.9 G/DL (3.4-5.0); ALBUMIN/GLOBULIN RATIO 0.6 (1.1-1.5); ALKALINE PHOSPHATASE 62 IU/L (46-116); ANION GAP 4 (8-16); ASPARTATE AMINO TRANSFERASE 12 U/L (10-37); BILIRUBIN,TOTAL 0.3 MG/DL (0.1-1.0); BLOOD UREA NITROGEN 33 MG/DL (7-18); BUN/CREATININE RATIO 4.7 (5.4-32.0); CALCIUM 8.6 MG/DL (8.5-10.1); CHLORIDE 106 MMOL/L (99-107); CREATININE 7.01 MG/DL (0.60-1.10); GLUCOSE 96 MG/DL (70-104); MAGNESIUM 2.5 MG/DL (1.5-2.4); PHOSPHORUS 4.3 MG/DL (2.3-4.5); POTASSIUM 3.6 MMOL/L (3.5-5.1); SODIUM 145 MMOL/L (135-145); TOTAL CARBON DIOXIDE 35.4 MMOL/L (24-32); TOTAL PROTEIN 7.5 G/DL (6.4-8.2); eGFR 9 ML/MIN
[2019-06-22] MEDS: HYDROcodone/acetaminophen 10/325mg tab PO PRN ×2 (05:43→10:29)
--- NOTE | 2019-06-22 06:39 | NUR ---
Problems reprioritized. Patient report given, questions answered & plan of care reviewed with Hua RN.
[2019-06-22] MEDS: aspirin 81mg tablet.DR PO SCH (07:08)
[2019-06-22] MEDS: docusate sod 100mg capsule PO SCH (07:08)
[2019-06-22] MEDS: isosorbide mononitrate 30mg tab.SR.24H PO SCH (07:09)
[2019-06-22] MEDS: lisinopril 20mg tablet PO SCH (07:09)
[2019-06-22] MEDS: carVEDilol 12.5mg tablet PO SCH (07:09)
[2019-06-22] MEDS: hyDRALAzine 10mg tablet PO SCH ×2 (07:09→12:14)
[2019-06-22] MEDS: calcium acetate 667mg (PhosLO) capsule PO SCH ×2 (07:10→12:14)
[2019-06-22] MEDS: heparin, porcine 5000 units/ml vial SQ SCH (07:16)
[2019-06-22] MEDS ORDERED: cloNIDine 0.1 MG/24 HOUR patch (7 day patch) TD SCH (08:00)
[2019-06-22] MEDS ORDERED: pantoprazole 40mg Tablet.DR PO SCH (08:00)
[2019-06-22] MEDS ORDERED: diltiazem CD 180mg cap (once-daily) PO SCH (08:00)
[2019-06-22] MEDS ORDERED: diltiazem CD 120mg capsule (once-daily) PO SCH (08:00)
[2019-06-22] MEDS ORDERED: atorvastatin 20mg tablet PO SCH (08:00)
[2019-06-22] MEDS ORDERED: minoxidil 2.5mg tablet PO SCH (08:00)
--- NOTE | 2019-06-22 08:26 | NUR ---
Pt vomited moderate amount. No pills noted to be in vomit. However will continue to monitor high BP closely.
--- NOTE | 2019-06-22 09:25 | NUR ---
Per MD Dillon, to replace 0.1 and 0.3mg patch. Pt just placed patch on thursday and is normally changed qweekly. Will remove old patches and place new ones. Will continue to monitor.
--- NOTE | 2019-06-22 13:38 | NUR ---
Pt discharged to home per MD simmons orders. On discharge VS BP 179/92 Hr 57 sating 97% on RA okayed by MD henao. IV dc'd. All belongings sent with pt and . Including phone, wallet and all valuables. Aux called and pt brought down to hospital entrance via wheelchair.
[2019-06-25] MEDS ORDERED: cloNIDine 0.1 MG/24 HOUR patch (7 day patch) TD SCH (08:00)
== END 2019-06-22 13:35 | disposition home or self-care (01) | DRG 77 ==
LOC: ER 09:51 → ED HOLD 12:50 → ICU 2S 14:00
PROVIDERS: ADMIT Internal Medicine Critical Care Medicine; ATTEND Internal Medicine Critical Care Medicine
DX: I67.4 Hypertensive encephalopathy (principal); N18.6 End stage renal disease; I13.2 Hypertensive heart and chronic kidney disease with heart failure and with stage 5 chronic kidney disease, or end stage renal disease; F31.30 Bipolar disorder, current episode depressed, mild or moderate severity, unspecified; I16.0 Hypertensive urgency; E78.00 Pure hypercholesterolemia, unspecified; F02.80 Dementia in other diseases classified elsewhere, unspecified severity, without behavioral disturbance, psychotic disturbance, mood disturbance, and anxiety; F17.210 Nicotine dependence, cigarettes, uncomplicated; I50.9 Heart failure, unspecified; G30.9 Alzheimer's disease, unspecified; K21.9 Gastro-esophageal reflux disease without esophagitis; G89.29 Other chronic pain; F41.9 Anxiety disorder, unspecified; B19.20 Unspecified viral hepatitis C without hepatic coma; I25.2 Old myocardial infarction; Z80.6 Family history of leukemia; Z82.0 Family history of epilepsy and other diseases of the nervous system; Z82.49 Family history of ischemic heart disease and other diseases of the circulatory system; Z95.1 Presence of aortocoronary bypass graft; Z88.1 Allergy status to other antibiotic agents; Z88.8 Allergy status to other drugs, medicaments and biological substances
CPT/HCPCS: 36415; 70450; 80053; 83735; 83880; 84100; 84484; 85025; 87081; 93005; 96374; 97161; 97530; 99291; G0378; J1644; J2405; J3490

== ENCOUNTER 2020-04-04 01:43 | Emergency (ER) | payer MEDICARE, MEDICAID ==
[~2020-04-04] VITALS: Ht 172.7 cm; Wt 70.2 kg
[~2020-04-04 01:43] MED LIST changes: +ASPI-1397 PO; +ATOR20TA66 PO; +CLON1PAT14 TD; +CLON1PAT16 TD; -DILT-94 PO; +DILT300C23 PO; -DOCU-28 PO; +HYDR-3972 PO; +HYDR100T27 PO; +ISON300T21 PO; -ISOS30TA10 PO; +ISOS30TA6 PO; +LISI-600 PO; -LOSA25TA96 PO; +MINO10TA16 PO; +OMEP40CA13 PO; +ONDA-103 PO; -PANT-47 PO; -POLY17PO10 PO
[2020-04-04 02:04] VITALS: BP 130/86
[2020-04-04] MEDS ORDERED: diazepam 5mg tablet PO ONE (02:30)
== END 2020-04-04 02:59 | disposition home or self-care (01) ==
LOC: ER 01:44
DX: M54.5 Low back pain (principal); E78.00 Pure hypercholesterolemia, unspecified; K21.9 Gastro-esophageal reflux disease without esophagitis; I13.2 Hypertensive heart and chronic kidney disease with heart failure and with stage 5 chronic kidney disease, or end stage renal disease; N18.6 End stage renal disease; G89.29 Other chronic pain; F41.9 Anxiety disorder, unspecified; F31.9 Bipolar disorder, unspecified; F12.90 Cannabis use, unspecified, uncomplicated; F15.90 Other stimulant use, unspecified, uncomplicated; Z99.2 Dependence on renal dialysis; Z86.19 Personal history of other infectious and parasitic diseases; Z98.890 Other specified postprocedural states; Z56.0 Unemployment, unspecified; Z88.1 Allergy status to other antibiotic agents; Z88.5 Allergy status to narcotic agent; Z88.8 Allergy status to other drugs, medicaments and biological substances; Z79.899 Other long term (current) drug therapy
CPT/HCPCS: 99283

== ENCOUNTER 2020-10-15 01:02 | Emergency (ER) | payer MEDICARE, MEDICAID ==
[~2020-10-15] VITALS: Ht 172.7 cm; Wt 67.2 kg
[~2020-10-15 01:02] MED LIST changes: -ISOS30TA6 PO; +ISOS30TA84 PO; -LISI-600 PO; +LISI20TA28 PO
[2020-10-15 01:09] VITALS: BP 173/98
[2020-10-15] MEDS ORDERED: LIDOcaine Viscous 15ml cup MM ONE (01:25)
[2020-10-15] MEDS ORDERED: ondansetron 4mg rapidly disintigrating tab PO ONE (01:25)
[2020-10-15] MEDS ORDERED: mag hydrox/Alum hydrox/simeth 30ml oral suspension PO ONE (01:25)
[2020-10-15 02:47] LABS: BASOPHILS % (AUTO) 0.1 % (0-1); EOSINOPHILS % (AUTO) 0 % (0-6); HEMATOCRIT 34.6 % (42.0-52.0); HEMOGLOBIN 11.6 g/dl (14.0-17.9); LYMPHOCYTES % (AUTO) 9.9 % (21-51); MEAN CORPUSCULAR HEMOGLOBIN 32.5 PG (27.0-31.0); MEAN CORPUSCULAR HGB CONC 33.7 g/dL (33.0-36.5); MEAN CORPUSCULAR VOLUME 96.5 FL (78-98); MEAN PLATELET VOLUME 8.5 FL (7.4-10.4); MONOCYTES # (AUTO) 0.6 X10'3 (0-0.9); MONOCYTES % (AUTO) 5.8 % (2-12); NEUTROPHILS # (AUTO) 8.4 X10'3 (1.8-7.7); NEUTROPHILS % (AUTO) 84.2 % (42-75); PLATELET COUNT 289 X10'3 (140-440); RED BLOOD COUNT 3.58 X10'6 (4.70-6.10); RED CELL DISTRIBUTION WIDTH 14.1 % (11.5-14.5)
[2020-10-15 03:12] LABS: ALANINE AMINOTRANSFERASE 57 U/L (12-78); ALBUMIN 3.6 G/DL (3.4-5.0); ALBUMIN/GLOBULIN RATIO 0.9 (1.1-1.5); ALKALINE PHOSPHATASE 73 IU/L (46-116); ANION GAP 19 (8-16); ASPARTATE AMINO TRANSFERASE 22 U/L (10-37); BILIRUBIN,TOTAL 0.5 MG/DL (0.1-1.0); BLOOD UREA NITROGEN 67 MG/DL (7-18); BUN/CREATININE RATIO 6.9 (5.4-32.0); CALCIUM 8.3 MG/DL (8.5-10.1); CHLORIDE 91 MMOL/L (99-107); CREATININE 9.69 MG/DL (0.60-1.10); GLUCOSE 95 MG/DL (70-104); LIPASE < 50 U/L (73-393); POTASSIUM 4.4 MMOL/L (3.5-5.1); SODIUM 137 MMOL/L (135-145); TOTAL CARBON DIOXIDE 27.4 MMOL/L (24-32); TOTAL PROTEIN 7.7 G/DL (6.4-8.2); eGFR 6 ML/MIN
== END 2020-10-15 04:32 | disposition home or self-care (01) ==
LOC: ER 01:02
DX: R11.2 Nausea with vomiting, unspecified (principal); I13.2 Hypertensive heart and chronic kidney disease with heart failure and with stage 5 chronic kidney disease, or end stage renal disease; N18.6 End stage renal disease; E78.00 Pure hypercholesterolemia, unspecified; G89.29 Other chronic pain; F41.9 Anxiety disorder, unspecified; F31.9 Bipolar disorder, unspecified; F12.90 Cannabis use, unspecified, uncomplicated; F15.90 Other stimulant use, unspecified, uncomplicated; Z99.2 Dependence on renal dialysis; Z86.19 Personal history of other infectious and parasitic diseases; Z98.890 Other specified postprocedural states; Z56.0 Unemployment, unspecified; Z88.1 Allergy status to other antibiotic agents; Z88.5 Allergy status to narcotic agent; Z79.82 Long term (current) use of aspirin; Z79.899 Other long term (current) drug therapy
CPT/HCPCS: 36415; 80053; 83690; 85025; 99284

== ENCOUNTER 2020-10-15 16:37 | Observation (INO) | payer MEDICARE, MEDICAID ==
[~2020-10-15] VITALS: Ht 172.7 cm; Wt 70.0 kg
[2020-10-15] MEDS ORDERED: acetaminophen 325mg tablet PO STA ×2 (17:01→18:16)
[2020-10-15] MEDS ORDERED: CefTRIAXone 2gm/D5W 50ml BAG 50 ML IV ONE ×2 (17:05→18:20)
--- NOTE | 2020-10-15 18:10 | NUR ---
DR AGUILA MADE AWARE MEDICATION ORDERS NEEDED FOR PATIENT. PATIENT NAUSEOUS. MD TO WRITE ORDERS.
[2020-10-15] MEDS ORDERED: ondansetron/PF 4mg/2ml inj IV ONE (19:05)
[2020-10-15 19:45] LABS: BASOPHILS % (AUTO) 0.1 % (0-1); EOSINOPHILS % (AUTO) 0 % (0-6); HEMATOCRIT 33.6 % (42.0-52.0); HEMOGLOBIN 11.3 g/dl (14.0-17.9); LYMPHOCYTES # (AUTO) 1.1 X10'3 (1.1-4.8); LYMPHOCYTES % (AUTO) 9.2 % (21-51); MEAN CORPUSCULAR HEMOGLOBIN 32.6 PG (27.0-31.0); MEAN CORPUSCULAR HGB CONC 33.7 g/dL (33.0-36.5); MEAN CORPUSCULAR VOLUME 96.9 FL (78-98); MEAN PLATELET VOLUME 8.6 FL (7.4-10.4); MONOCYTES # (AUTO) 1.1 X10'3 (0-0.9); MONOCYTES % (AUTO) 9.5 % (2-12); NEUTROPHILS # (AUTO) 9.6 X10'3 (1.8-7.7); NEUTROPHILS % (AUTO) 81.2 % (42-75); PLATELET COUNT 278 X10'3 (140-440); RED BLOOD COUNT 3.47 X10'6 (4.70-6.10); RED CELL DISTRIBUTION WIDTH 13.9 % (11.5-14.5); WHITE BLOOD COUNT 11.9 X10'3 (4.5-11.0)
[2020-10-15] MEDS ORDERED: proCHLORperazine 10 MG/2 ml inj IV ONE (20:00)
[2020-10-15 20:15] LABS: MAGNESIUM 2.4 MG/DL (1.5-2.4)
[2020-10-15 20:19] LABS: ALBUMIN 3.4 G/DL (3.4-5.0); ALBUMIN/GLOBULIN RATIO 0.9 (1.1-1.5); ALKALINE PHOSPHATASE 67 IU/L (46-116); ANION GAP 9 (8-16); ASPARTATE AMINO TRANSFERASE 29 U/L (10-37); BILIRUBIN,TOTAL 0.6 MG/DL (0.1-1.0); BLOOD UREA NITROGEN 22 MG/DL (7-18); BUN/CREATININE RATIO 4.9 (5.4-32.0); CALCIUM 8.4 MG/DL (8.5-10.1); CHLORIDE 99 MMOL/L (99-107); CREATININE 4.46 MG/DL (0.60-1.10); GLUCOSE 97 MG/DL (70-104); POTASSIUM 3.6 MMOL/L (3.5-5.1); SODIUM 140 MMOL/L (135-145); TOTAL CARBON DIOXIDE 31.8 MMOL/L (24-32); TOTAL PROTEIN 7.3 G/DL (6.4-8.2); eGFR 15 ML/MIN
[2020-10-15 20:25] LABS: ALANINE AMINOTRANSFERASE 51 U/L (12-78)
[2020-10-15] MEDS ORDERED: proCHLORperazine 10 MG/2 ml inj IV PRN (21:20)
[2020-10-15] MEDS ORDERED: ondansetron/PF 4mg/2ml inj IV PRN (21:20)
[2020-10-15] MEDS ORDERED: HYDROcodone/acetaminophen 5mg/325mg tablet PO PRN (21:20)
[2020-10-15] MEDS ORDERED: acetaminophen 325mg tablet PO PRN ×2 (21:20)
[2020-10-15] MEDS ORDERED: HYDROcodone/acetaminophen 10/325mg tab PO PRN (21:20)
[2020-10-15 22:04] LABS: LIPASE 52 U/L (73-393)
--- NOTE | 2020-10-15 23:14 | NUR ---
REPORT GIVEN TO JUDITH. PT WITH TEMP ORALLY 100.3, OTHERWISE VSS. REPORTS PAIN TO BACK OF 5 OUT OF 10 AND SOME NAUSEA. WILL OFFER PAIN MEDS AND ANTIEMETIC PRIOR TO TRANSFERRING UPSTAIRS.
--- NOTE | 2020-10-15 23:24 | NUR ---
PT GIVEN NORCO, UNABLE TO GIVE ANTIEMETIC AT THIS TIME TOO SOON TO GIVEN ZOFRAN OR COMPAZINE. PT HAS SIGNIFICANT AMT OF $ AND CURRENTLY PROVIDING HIS MONEY TO ADMITTING TO PLACE IN [place].
[2020-10-16] VITALS: BP 159/95
[2020-10-16] MEDS: metroNIDAZOLE-Flagyl 250mg/NS 50 ML IV SCH ×2 (00:12→09:36)
[2020-10-16] MEDS ORDERED: HYDROcodone/acetaminophen 10/325mg tab PO PRN (02:35)
[2020-10-16] MEDS ORDERED: ondansetron 4mg rapidly disintigrating tab PO PRN (02:35)
[2020-10-16] MEDS ORDERED: heparin 1,000unit/ml 10ml vial 10 ML IV ONE (04:45)
[2020-10-16] MEDS ORDERED: heparin 1,000 units/ml 10ml inj IV ONE (04:45)
[2020-10-16] MEDS ORDERED: heparin 1,000 units/ml 10ml inj HE ONE (04:50)
[2020-10-16 05:57] LABS: BASOPHILS % (AUTO) 0.2 % (0-1); EOSINOPHILS % (AUTO) 0.1 % (0-6); HEMATOCRIT 32.5 % (42.0-52.0); LYMPHOCYTES # (AUTO) 1.6 X10'3 (1.1-4.8); LYMPHOCYTES % (AUTO) 15.7 % (21-51); MEAN CORPUSCULAR HEMOGLOBIN 33.1 PG (27.0-31.0); MEAN CORPUSCULAR HGB CONC 33.9 g/dL (33.0-36.5); MEAN CORPUSCULAR VOLUME 97.4 FL (78-98); MEAN PLATELET VOLUME 8.8 FL (7.4-10.4); MONOCYTES # (AUTO) 1.1 X10'3 (0-0.9); MONOCYTES % (AUTO) 10.9 % (2-12); NEUTROPHILS # (AUTO) 7.7 X10'3 (1.8-7.7); NEUTROPHILS % (AUTO) 73.1 % (42-75); PLATELET COUNT 240 X10'3 (140-440); RED BLOOD COUNT 3.34 X10'6 (4.70-6.10); RED CELL DISTRIBUTION WIDTH 13.9 % (11.5-14.5); WHITE BLOOD COUNT 10.5 X10'3 (4.5-11.0)
[2020-10-16 06:09] LABS: ALANINE AMINOTRANSFERASE 43 U/L (12-78); ALBUMIN 3.2 G/DL (3.4-5.0); ALBUMIN/GLOBULIN RATIO 0.9 (1.1-1.5); ALKALINE PHOSPHATASE 61 IU/L (46-116); ANION GAP 9 (8-16); ASPARTATE AMINO TRANSFERASE 24 U/L (10-37); BILIRUBIN,TOTAL 0.4 MG/DL (0.1-1.0); BLOOD UREA NITROGEN 37 MG/DL (7-18); BUN/CREATININE RATIO 5.7 (5.4-32.0); CHLORIDE 98 MMOL/L (99-107); CREATININE 6.52 MG/DL (0.60-1.10); GLUCOSE 87 MG/DL (70-104); POTASSIUM 3.9 MMOL/L (3.5-5.1); SODIUM 139 MMOL/L (135-145); TOTAL CARBON DIOXIDE 31.9 MMOL/L (24-32); TOTAL PROTEIN 6.7 G/DL (6.4-8.2); eGFR 10 ML/MIN
--- NOTE | 2020-10-16 06:37 | NUR ---
Problems reprioritized. Patient report given, questions answered & plan of care reviewed with JOSE ANTONIO. Addendum: 10/16/20 at 0638 by Emil Valente RN Amended: Links added.
[2020-10-16 07:00] VITALS: BP 159/81
[2020-10-16] MEDS ORDERED: CefTRIAXone/D5W-Rocephin 1gm 50 ML IV SCH (08:00)
[2020-10-16] MEDS ORDERED: lisinopril 20mg tablet PO SCH (08:00)
[2020-10-16] MEDS ORDERED: docusate sod 100mg capsule PO SCH (08:00)
[2020-10-16] MEDS ORDERED: aspirin 81mg tablet.DR PO SCH (08:00)
[2020-10-16] MEDS ORDERED: carVEDilol 12.5mg tablet PO SCH (08:00)
[2020-10-16] MEDS ORDERED: diltiazem CD 120mg capsule (once-daily) PO SCH (08:00)
[2020-10-16] MEDS ORDERED: atorvastatin 20mg tablet PO SCH (08:00)
[2020-10-16] MEDS ORDERED: diltiazem CD 180mg cap (once-daily) PO SCH (08:00)
[2020-10-16] MEDS: calcium acetate 667mg (PhosLO) capsule PO SCH ×2 (08:27→12:36)
[2020-10-16] MEDS: hydrALAZINE 25 MG tablet PO SCH ×2 (08:30→12:36)
[2020-10-16] MEDS ORDERED: minoxidil 2.5mg tablet PO SCH (09:15)
[2020-10-16 11:00] VITALS: BP 142/91
[2020-10-16 11:20] VITALS: BP 142/91
--- NOTE | 2020-10-16 12:31 | NUR ---
I'd requested Minoxidil for this patient, sent message to pharmacy, and has been checking specific bin and Ominicell but never came.
[2020-10-16 12:36] VITALS: BP_SYST 159
--- NOTE | 2020-10-16 12:47 | NUR ---
Discharge instructions given to patient, patient verbalized understanding of all instructions given. Peripheral IV catheter removed, tip intact. Instructed patient to ensure he has all his belongings with him before leaving the hospital and to pick up driver his wallet on the way out. Patient was accompanied by his sister upon discharge and was transported out via wheelchair by a hospital volunteer. Patient was advised to contact dialysis center today to ensure he got dialyze tomorrow. Addendum: 10/18/20 at 1252 by Liliane Yanez RN Pt states that he did go to dialysis appointment yesterday, 10/17/20, as scheduled.
--- NOTE | 2020-10-18 12:51 | NUR ---
CASE MANAGEMENT DISCHARGE FOLLOW UP: Spoke with pt via telephone. Reports that he is doing a lot better; denies all complaint. Verbalizes understanding of s/sx requiring further evaluation/emergent assistance. Verbalizes understanding of medications. Verbalizes compliance with MD discharge instructions. Verbalizes understanding of the importance in making/keeping follow-up appointments, has appointment with PMD scheduled for 10/25. States no further questions/concerns at this time.
== END 2020-10-16 12:50 | disposition home or self-care (01) ==
LOC: ER 16:38 → ED HOLD 21:18 → SUR 3N 23:35
PROVIDERS: ADMIT Family Medicine; ATTEND Family Medicine
DX: A08.39 Other viral enteritis (principal); K52.9 Noninfective gastroenteritis and colitis, unspecified; D72.829 Elevated white blood cell count, unspecified; I13.2 Hypertensive heart and chronic kidney disease with heart failure and with stage 5 chronic kidney disease, or end stage renal disease; I50.9 Heart failure, unspecified; N18.6 End stage renal disease; F31.9 Bipolar disorder, unspecified; F41.9 Anxiety disorder, unspecified; E78.00 Pure hypercholesterolemia, unspecified; G89.29 Other chronic pain; B18.2 Chronic viral hepatitis C; Z99.2 Dependence on renal dialysis; Z79.899 Other long term (current) drug therapy; Z88.1 Allergy status to other antibiotic agents; Z88.5 Allergy status to narcotic agent
CPT/HCPCS: 36415; 71045; 74176; 80053; 83605; 83690; 83735; 84100; 84145; 85025; 87040; 87081; 93005; 96365; 96366; 96367; 96375; 96376; 99285; G0378; J0696; J0780; J2405; J3490

== ENCOUNTER 2020-12-13 14:57 | Outpatient (CLI) | payer MEDICARE, MEDICAID ==
[~2020-12-13 14:57] MED LIST changes: -CLON1PAT14 TD; -CLON1PAT16 TD; -ISON300T21 PO; -ISOS30TA84 PO; -OMEP40CA13 PO
== END 2020-12-13 23:59 | disposition home or self-care (01) ==
LOC: LAB 14:57
DX: N18.6 End stage renal disease (principal)
CPT/HCPCS: 36415; 86480

== ENCOUNTER 2020-12-27 17:06 | Emergency (ER) | payer MEDICARE, MEDICAID ==
[~2020-12-27] VITALS: Ht 172.7 cm; Wt 69.4 kg
[2020-12-27 17:12] VITALS: BP 140/82
[2020-12-27] MEDS ORDERED: LIDOcaine 1% 30ml preserv. free vial IJ ONE (17:30)
== END 2020-12-27 18:44 | disposition home or self-care (01) ==
LOC: ER 17:07
DX: S61.522A Laceration with foreign body of left wrist, initial encounter (principal); E78.00 Pure hypercholesterolemia, unspecified; I25.10 Atherosclerotic heart disease of native coronary artery without angina pectoris; I11.0 Hypertensive heart disease with heart failure; I50.9 Heart failure, unspecified; K74.60 Unspecified cirrhosis of liver; K21.9 Gastro-esophageal reflux disease without esophagitis; I12.0 Hypertensive chronic kidney disease with stage 5 chronic kidney disease or end stage renal disease; N18.9 Chronic kidney disease, unspecified; F12.90 Cannabis use, unspecified, uncomplicated; F15.90 Other stimulant use, unspecified, uncomplicated; Z98.890 Other specified postprocedural states; Z56.0 Unemployment, unspecified; Z88.2 Allergy status to sulfonamides; Z88.8 Allergy status to other drugs, medicaments and biological substances; Z99.2 Dependence on renal dialysis; Z79.82 Long term (current) use of aspirin; Z79.899 Other long term (current) drug therapy; W22.03XA Walked into furniture, initial encounter; Z88.1 Allergy status to other antibiotic agents; Y93.89 Activity, other specified; Y92.89 Other specified places as the place of occurrence of the external cause; Y99.8 Other external cause status
CPT/HCPCS: 12001; 99282

== ENCOUNTER 2021-04-11 05:01 | Emergency (ER) | payer MEDICARE, MEDICAID ==
[~2021-04-11] VITALS: Ht 172.7 cm; Wt 68.0 kg
[2021-04-11 05:46] VITALS: BP 119/69
== END 2021-04-11 08:05 | disposition home or self-care (01) ==
LOC: ER 05:01
DX: J02.9 Acute pharyngitis, unspecified (principal); Z20.822 Contact with and (suspected) exposure to COVID-19; R51.9 Headache, unspecified; R50.9 Fever, unspecified; E78.00 Pure hypercholesterolemia, unspecified; K21.9 Gastro-esophageal reflux disease without esophagitis; I13.2 Hypertensive heart and chronic kidney disease with heart failure and with stage 5 chronic kidney disease, or end stage renal disease; N18.6 End stage renal disease; F12.90 Cannabis use, unspecified, uncomplicated; F15.90 Other stimulant use, unspecified, uncomplicated; Z99.2 Dependence on renal dialysis; Z86.19 Personal history of other infectious and parasitic diseases; Z56.0 Unemployment, unspecified; Z98.890 Other specified postprocedural states
CPT/HCPCS: 87635; 99283; C9803

== ENCOUNTER 2021-06-03 07:55 | Outpatient (CLI) | payer MEDICARE, MEDICAID | END 2021-06-03 23:59 | disposition home or self-care (01) | LOC: CARD DIAG 07:55 | PROVIDERS: ATTEND Internal Medicine Cardiovascular Disease | DX: I34.0 Nonrheumatic mitral (valve) insufficiency (principal); I50.9 Heart failure, unspecified | CPT/HCPCS: 93306 ==

== ENCOUNTER 2021-06-19 09:29 | Day surgery (SDC) | payer MEDICARE, MEDICAID ==
[2021-06-18 12:25] LABS: BASOPHILS # (AUTO) 0.1 X10'3 (0-0.2); BASOPHILS % (AUTO) 0.8 % (0-1); EOSINOPHILS # (AUTO) 0.4 X10'3 (0-0.9); EOSINOPHILS % (AUTO) 5.6 % (0-6); HEMATOCRIT 33.7 % (42.0-52.0); HEMOGLOBIN 11.4 g/dl (14.0-17.9); LYMPHOCYTES # (AUTO) 1.3 X10'3 (1.1-4.8); LYMPHOCYTES % (AUTO) 20.4 % (21-51); MEAN CORPUSCULAR HEMOGLOBIN 32.4 PG (27.0-31.0); MEAN CORPUSCULAR HGB CONC 33.9 g/dL (33.0-36.5); MEAN CORPUSCULAR VOLUME 95.6 FL (78-98); MEAN PLATELET VOLUME 8.4 FL (7.4-10.4); MONOCYTES # (AUTO) 0.6 X10'3 (0-0.9); MONOCYTES % (AUTO) 9.4 % (2-12); NEUTROPHILS # (AUTO) 4.2 X10'3 (1.8-7.7); NEUTROPHILS % (AUTO) 63.8 % (42-75); PLATELET COUNT 248 X10'3 (140-440); RED BLOOD COUNT 3.53 X10'6 (4.70-6.10); RED CELL DISTRIBUTION WIDTH 16.1 % (11.5-14.5); WHITE BLOOD COUNT 6.5 X10'3 (4.5-11.0)
[2021-06-18 12:28] LABS: ALBUMIN 3.5 G/DL (3.4-5.0); ANION GAP 10 (8-16); BLOOD UREA NITROGEN 30 MG/DL (7-18); BUN/CREATININE RATIO 4.3 (5.4-32.0); CALCIUM 8.5 MG/DL (8.5-10.1); CHLORIDE 100 MMOL/L (99-107); CREATININE 6.97 MG/DL (0.60-1.10); GLUCOSE 79 MG/DL (70-104); POTASSIUM 4.3 MMOL/L (3.5-5.1); SODIUM 142 MMOL/L (135-145); TOTAL CARBON DIOXIDE 32.5 MMOL/L (24-32); eGFR 9 ML/MIN
[2021-06-18 12:31] LABS: APTT 27 SECONDS (22-32)
[~2021-06-19] VITALS: Ht 172.7 cm; Wt 75.0 kg
[2021-06-19] VITALS (9 sets, daily range): BP systolic 156–187; BP diastolic 71–98
[2021-06-19] MEDS ORDERED: LIDOcaine/PRILOcaine 5gm cream TP ONE (09:50)
[2021-06-19] MEDS ORDERED: LORazepam 0.5 MG tablet PO PRN (10:00)
[2021-06-19] MEDS ORDERED: normal saline 1,000 ML IV SCH (10:00)
[2021-06-19] MEDS ORDERED: diphenhydrAMINE 25mg capsule PO PRN (10:00)
[2021-06-19] MEDS ORDERED: DOCU-345 PO (10:19)
[2021-06-19] MEDS ORDERED: PROM6.256 PO (10:21)
[2021-06-19] MEDS ORDERED: DEXL60CA3 PO (10:21)
[2021-06-19] MEDS ORDERED: sodium bicarbonate (8.4%) inj. 150 ML in dextrose 5%-water 1,000 ML IV ONE (10:30)
[2021-06-19] MEDS: acetylcysteine 200 MG/ml 4ml vial PO PRN ×2 (11:09→17:16)
[2021-06-19] MEDS ORDERED: nitroGLYCERIN-Tridil 50MG/D5W 250 ML IV ONE (12:00)
[2021-06-19] MEDS ORDERED: ondansetron/PF 4mg/2ml inj ONE (12:47)
[2021-06-19 13:15] LABS: ISTAT HGB ART 10.9 g/dl (14.0-18.0); ISTAT Hct ART 32 %PCV (42-52); ISTAT O2 SATURATION ARTERIAL 97 % (95-98); ISTAT SOURCE ART
[2021-06-19] MEDS ORDERED: iohexol 350 MG/ML 50ML vial IV ONE ×2 (13:21→13:39)
[2021-06-19] MEDS ORDERED: midazolam 1 mg/ML 2ml injection ONE (13:38)
[2021-06-19] MEDS ORDERED: heparin 1,000unit/ml 10ml vial 10 ML ONE (13:39)
[2021-06-19] MEDS ORDERED: LIDOcaine 1% (10mg/ml)w/preservative injection 20ml MDV ONE (13:39)
[2021-06-19] MEDS ORDERED: iohexol 350MG/ML 100ml bottle IV ONE (13:39)
[2021-06-19] MEDS ORDERED: fentaNYL/PF 50MCG/1 ML 2ML syringe ONE (13:39)
[2021-06-19 16:11] LABS: ISTAT Hct MIX 32 %PCV (42-52); ISTAT O2 SATURATION MIX VENOUS 81 % (60-80); ISTAT SOURCE VEN
== END 2021-06-19 17:50 | disposition home or self-care (01) ==
LOC: SSTAY O 09:29
PROVIDERS: ATTEND Internal Medicine Cardiovascular Disease
DX: R53.83 Other fatigue (principal); R06.02 Shortness of breath; I25.10 Atherosclerotic heart disease of native coronary artery without angina pectoris; I12.0 Hypertensive chronic kidney disease with stage 5 chronic kidney disease or end stage renal disease; N18.6 End stage renal disease; K21.9 Gastro-esophageal reflux disease without esophagitis; D50.9 Iron deficiency anemia, unspecified; K74.60 Unspecified cirrhosis of liver; G25.81 Restless legs syndrome; N25.81 Secondary hyperparathyroidism of renal origin; Z99.2 Dependence on renal dialysis; Z98.890 Other specified postprocedural states; Z87.891 Personal history of nicotine dependence; Z86.19 Personal history of other infectious and parasitic diseases; Z79.899 Other long term (current) drug therapy; Z79.82 Long term (current) use of aspirin; Z88.5 Allergy status to narcotic agent; Z88.1 Allergy status to other antibiotic agents; Z82.49 Family history of ischemic heart disease and other diseases of the circulatory system
CPT/HCPCS: 36415; 76937; 80048; 82803; 85014; 85025; 85610; 85730; 93005; 93460; 99152; 99153; C1751; C1769; C1894; J1644; J2250; J2405; J3010; J3490; J7070; Q0163; Q9967; A4620; A5120

== ENCOUNTER 2021-07-28 15:48 | Emergency (ER) | payer MEDICARE, MEDICAID ==
[~2021-07-28] VITALS: Ht 175.3 cm; Wt 73.6 kg
[~2021-07-28 15:48] MED LIST changes: +DEXL60CA3 PO; +DOCU-345 PO; +PROM6.256 PO
[2021-07-28 16:25] VITALS: BP 167/97
== END 2021-07-28 17:15 | disposition left against medical advice (07) ==
LOC: ER 15:51
DX: R10.32 Left lower quadrant pain (principal); E78.00 Pure hypercholesterolemia, unspecified; I11.0 Hypertensive heart disease with heart failure; I50.9 Heart failure, unspecified; K21.9 Gastro-esophageal reflux disease without esophagitis; I12.0 Hypertensive chronic kidney disease with stage 5 chronic kidney disease or end stage renal disease; N18.6 End stage renal disease; G89.29 Other chronic pain; F12.90 Cannabis use, unspecified, uncomplicated; F15.90 Other stimulant use, unspecified, uncomplicated; Z87.19 Personal history of other diseases of the digestive system; Z99.2 Dependence on renal dialysis; Z88.1 Allergy status to other antibiotic agents; Z88.8 Allergy status to other drugs, medicaments and biological substances; Z79.82 Long term (current) use of aspirin; Z79.899 Other long term (current) drug therapy
CPT/HCPCS: 99281

== ENCOUNTER 2021-08-09 19:34 | Emergency (ER) | payer MEDICARE, MEDICAID ==
[~2021-08-09] VITALS: Ht 172.7 cm; Wt 74.4 kg
[~2021-08-09 19:34] MED LIST changes: +HYDR-3965 PO; +LEVO500T90 PO; +METR-159 PO
[2021-08-09] MEDS ORDERED: HYDROcodone/acetaminophen 10/325mg tab PO ONE (20:55)
[2021-08-09 21:34] LABS: ALANINE AMINOTRANSFERASE 24 U/L (12-78); ALBUMIN 3.1 G/DL (3.4-5.0); ALBUMIN/GLOBULIN RATIO 0.7 (1.1-1.5); ALKALINE PHOSPHATASE 67 IU/L (46-116); ANION GAP 12 (8-16); ASPARTATE AMINO TRANSFERASE 21 U/L (10-37); BILIRUBIN,TOTAL 0.3 MG/DL (0.1-1.0); BLOOD UREA NITROGEN 36 MG/DL (7-18); CALCIUM 9.1 MG/DL (8.5-10.1); CHLORIDE 100 MMOL/L (99-107); CREATININE 12.01 MG/DL (0.60-1.10); GLUCOSE 106 MG/DL (70-104); POTASSIUM 4.2 MMOL/L (3.5-5.1); SODIUM 140 MMOL/L (135-145); TOTAL CARBON DIOXIDE 28.3 MMOL/L (24-32); TOTAL PROTEIN 7.8 G/DL (6.4-8.2); eGFR 5 ML/MIN
[2021-08-09 21:42] LABS: BASOPHILS # (AUTO) 0.1 X10'3 (0-0.2); BASOPHILS % (AUTO) 0.4 % (0-1); EOSINOPHILS # (AUTO) 0.4 X10'3 (0-0.9); EOSINOPHILS % (AUTO) 2.7 % (0-6); HEMATOCRIT 31.9 % (42.0-52.0); HEMOGLOBIN 10.5 g/dl (14.0-17.9); LYMPHOCYTES # (AUTO) 1.3 X10'3 (1.1-4.8); LYMPHOCYTES % (AUTO) 8.4 % (21-51); MEAN CORPUSCULAR HEMOGLOBIN 31.9 PG (27.0-31.0); MEAN CORPUSCULAR HGB CONC 32.7 g/dL (33.0-36.5); MEAN CORPUSCULAR VOLUME 97.3 FL (78-98); MEAN PLATELET VOLUME 7.3 FL (7.4-10.4); MONOCYTES # (AUTO) 1.5 X10'3 (0-0.9); MONOCYTES % (AUTO) 9.2 % (2-12); NEUTROPHILS # (AUTO) 12.6 X10'3 (1.8-7.7); NEUTROPHILS % (AUTO) 79.3 % (42-75); PLATELET COUNT 484 X10'3 (140-440); RED BLOOD COUNT 3.28 X10'6 (4.70-6.10); RED CELL DISTRIBUTION WIDTH 14.9 % (11.5-14.5); WHITE BLOOD COUNT 15.9 X10'3 (4.5-11.0)
[2021-08-09 22:53] LABS: APTT 29 SECONDS (22-32)
[2021-08-10 00:21] LABS: GLUCOSE,CSF 60 MG/DL (40-75); TOTAL PROTEIN,CSF 48 MG/DL (15-45)
[2021-08-10 00:40] LABS: APPEARANCE,CSF CLEAR; CSF SUPERNATANT COLOR COLORLESS; CSF VOLUME 8 ML
[2021-08-10 00:41] LABS: CSF RBC 0 /CU MM (0); CSF WBC CT 0 /CU MM (0-5); TUBE# COUNTED 3
[2021-08-10] MEDS ORDERED: ondansetron/PF 4mg/2ml inj IV ONE (02:10)
[2021-08-10] MEDS ORDERED: morphine 4 MG/ML inj SYRINge IV ONE ×3 (02:40→07:20)
[2021-08-10] MEDS ORDERED: morphine 2 MG/ML inj. syringe IV ONE (04:35)
[2021-08-10 09:12] VITALS: BP 144/94
== END 2021-08-10 08:30 | disposition short-term general hospital (02) ==
LOC: ER 19:34
DX: G61.0 Guillain-Barre syndrome (principal); Z20.822 Contact with and (suspected) exposure to COVID-19; I11.0 Hypertensive heart disease with heart failure; I50.9 Heart failure, unspecified; E78.00 Pure hypercholesterolemia, unspecified; K21.9 Gastro-esophageal reflux disease without esophagitis; I12.0 Hypertensive chronic kidney disease with stage 5 chronic kidney disease or end stage renal disease; E11.22 Type 2 diabetes mellitus with diabetic chronic kidney disease; N18.6 End stage renal disease; G89.29 Other chronic pain; Z86.19 Personal history of other infectious and parasitic diseases; Z99.2 Dependence on renal dialysis; F12.90 Cannabis use, unspecified, uncomplicated; F15.90 Other stimulant use, unspecified, uncomplicated; Z56.0 Unemployment, unspecified; Z87.19 Personal history of other diseases of the digestive system; Z88.1 Allergy status to other antibiotic agents; Z88.8 Allergy status to other drugs, medicaments and biological substances; Z79.82 Long term (current) use of aspirin; Z79.899 Other long term (current) drug therapy
CPT/HCPCS: 36415; 62270; 70450; 71045; 80053; 82945; 84157; 85025; 85610; 85730; 87015; 87070; 87635; 89051; 96374; 96375; 96376; 99291; 99292; C9803; J2270; J2405; 99285

== ENCOUNTER 2021-08-25 15:12 | Emergency (ER) | payer MEDICARE, MEDICAID ==
[~2021-08-25] VITALS: Ht 177.8 cm; Wt 76.5 kg
[~2021-08-25 15:12] MED LIST changes: -METR-159 PO
[2021-08-25 16:02] LABS: BASOPHILS # (AUTO) 0.1 X10'3 (0-0.2); BASOPHILS % (AUTO) 0.8 % (0-1); EOSINOPHILS # (AUTO) 0.3 X10'3 (0-0.9); EOSINOPHILS % (AUTO) 2.3 % (0-6); HEMATOCRIT 29.7 % (42.0-52.0); HEMOGLOBIN 9.8 g/dl (14.0-17.9); LYMPHOCYTES # (AUTO) 1.3 X10'3 (1.1-4.8); LYMPHOCYTES % (AUTO) 8.7 % (21-51); MEAN CORPUSCULAR HEMOGLOBIN 31.8 PG (27.0-31.0); MEAN CORPUSCULAR HGB CONC 33.1 g/dL (33.0-36.5); MEAN CORPUSCULAR VOLUME 96.2 FL (78-98); MEAN PLATELET VOLUME 7.6 FL (7.4-10.4); MONOCYTES # (AUTO) 1.2 X10'3 (0-0.9); MONOCYTES % (AUTO) 8.6 % (2-12); NEUTROPHILS # (AUTO) 11.5 X10'3 (1.8-7.7); NEUTROPHILS % (AUTO) 79.6 % (42-75); PLATELET COUNT 414 X10'3 (140-440); RED BLOOD COUNT 3.09 X10'6 (4.70-6.10); RED CELL DISTRIBUTION WIDTH 14.8 % (11.5-14.5); WHITE BLOOD COUNT 14.5 X10'3 (4.5-11.0)
[2021-08-25 16:15] LABS: ALANINE AMINOTRANSFERASE 34 U/L (12-78); ALBUMIN 3.6 G/DL (3.4-5.0); ALBUMIN/GLOBULIN RATIO 0.7 (1.1-1.5); ALKALINE PHOSPHATASE 68 IU/L (46-116); ANION GAP 13 (8-16); ASPARTATE AMINO TRANSFERASE 25 U/L (10-37); BILIRUBIN,TOTAL 0.3 MG/DL (0.1-1.0); BLOOD UREA NITROGEN 29 MG/DL (7-18); BUN/CREATININE RATIO 3.7 (5.4-32.0); CALCIUM 9.3 MG/DL (8.5-10.1); CHLORIDE 98 MMOL/L (99-107); CREATININE 7.81 MG/DL (0.60-1.10); GLUCOSE 95 MG/DL (70-104); POTASSIUM 4.5 MMOL/L (3.5-5.1); SODIUM 141 MMOL/L (135-145); TOTAL CARBON DIOXIDE 29.8 MMOL/L (24-32); TOTAL PROTEIN 8.7 G/DL (6.4-8.2); eGFR 8 ML/MIN
[2021-08-25] MEDS ORDERED: ondansetron 4mg rapidly disintigrating tab PO ONE (16:15)
[2021-08-25] MEDS ORDERED: morphine 4 MG/ML inj SYRINge IM ONE (16:15)
[2021-08-25] MEDS ORDERED: morphine 4 MG/ML inj SYRINge IV ONE ×2 (17:20→19:55)
[2021-08-25 17:39] LABS: LIPASE 88 U/L (73-393)
[2021-08-25] MEDS ORDERED: ondansetron/PF 4mg/2ml inj IV ONE (19:55)
[2021-08-25 20:18] VITALS: BP 153/102
== END 2021-08-25 20:20 | disposition home or self-care (01) ==
LOC: ER 15:12
DX: R07.89 Other chest pain (principal); J90 Pleural effusion, not elsewhere classified; N18.6 End stage renal disease; I11.0 Hypertensive heart disease with heart failure; I50.9 Heart failure, unspecified; E78.00 Pure hypercholesterolemia, unspecified; K21.9 Gastro-esophageal reflux disease without esophagitis; E11.22 Type 2 diabetes mellitus with diabetic chronic kidney disease; I12.0 Hypertensive chronic kidney disease with stage 5 chronic kidney disease or end stage renal disease; G89.29 Other chronic pain; F12.90 Cannabis use, unspecified, uncomplicated; G61.0 Guillain-Barre syndrome; F15.90 Other stimulant use, unspecified, uncomplicated; Z99.2 Dependence on renal dialysis; Z86.19 Personal history of other infectious and parasitic diseases; Z56.0 Unemployment, unspecified; Z88.1 Allergy status to other antibiotic agents; Z88.8 Allergy status to other drugs, medicaments and biological substances; Z79.82 Long term (current) use of aspirin; Z79.2 Long term (current) use of antibiotics; Z79.899 Other long term (current) drug therapy
CPT/HCPCS: 36415; 71045; 80053; 83690; 83880; 84484; 85025; 93005; 96374; 96375; 96376; 99285; J2270; J2405

== ENCOUNTER 2023-01-07 21:00 | Emergency (ER) | payer MEDICARE, MEDICAID ==
[~2023-01-07] VITALS: Ht 175.3 cm; Wt 73.6 kg
[~2023-01-07 21:00] MED LIST changes: +AMOX-117 PO; -DOCU-345 PO; +DOCU-368 PO; -HYDR-3965 PO; -LEVO500T90 PO; +PROM6.2525 PO; -PROM6.256 PO
[2023-01-07 22:05] LABS: EOSINOPHILS # (AUTO) 0.3 X10'3 (0-0.9); HEMOGLOBIN 15.3 g/dl (14.0-17.9); MEAN CORPUSCULAR HEMOGLOBIN 29.8 PG (27.0-31.0); MEAN CORPUSCULAR VOLUME 90.3 FL (78-98); MEAN PLATELET VOLUME 8.7 FL (7.4-10.4)
[2023-01-07 22:06] LABS: BASOPHILS % (AUTO) 0.5 % (0-1); EOSINOPHILS % (AUTO) 3.2 % (0-6); HEMATOCRIT 46.5 % (42.0-52.0); LYMPHOCYTES # (AUTO) 1.2 X10'3 (1.1-4.8); LYMPHOCYTES % (AUTO) 12.8 % (21-51); MONOCYTES # (AUTO) 0.9 X10'3 (0-0.9); MONOCYTES % (AUTO) 9.8 % (2-12); NEUTROPHILS # (AUTO) 6.9 X10'3 (1.8-7.7); NEUTROPHILS % (AUTO) 73.7 % (42-75); PLATELET COUNT 253 X10'3 (140-440); RED BLOOD COUNT 5.15 X10'6 (4.70-6.10); WHITE BLOOD COUNT 9.4 X10'3 (4.5-11.0)
[2023-01-07 22:20] LABS: ALANINE AMINOTRANSFERASE 18 U/L (12-78); ALBUMIN 3.6 G/DL (3.4-5.0); ALBUMIN/GLOBULIN RATIO 0.9 (1.1-1.5); ALKALINE PHOSPHATASE 87 IU/L (46-116); ANION GAP 8 (8-16); ASPARTATE AMINO TRANSFERASE 11 U/L (10-37); BILIRUBIN,TOTAL 0.3 MG/DL (0.1-1.0); BLOOD UREA NITROGEN 28 MG/DL (7-18); BUN/CREATININE RATIO 19.9 (10.0-20.0); CALCIUM 9.2 MG/DL (8.5-10.1); CHLORIDE 104 MMOL/L (99-107); CREATININE 1.41 MG/DL (0.60-1.10); POTASSIUM 4.2 MMOL/L (3.5-5.1); SODIUM 139 MMOL/L (135-145); TOTAL CARBON DIOXIDE 26.7 MMOL/L (24-32); TOTAL PROTEIN 7.4 G/DL (6.4-8.2); eGFR 55 ML/MIN
[2023-01-07 22:22] LABS: GLUCOSE 128 MG/DL (70-104)
[2023-01-07 23:16] LABS: CLARITY,URINE CLEAR (Clear); COLOR,URINE YELLOW (Yellow); GLUCOSE, URINE NEGATIVE (Neg); KETONES,URINE NEGATIVE (Neg); LEUKOCYTE ESTERASE ,URINE NEGATIVE (Neg); NITRITES, URINE NEGATIVE (Neg); OCCULT BLOOD,URINE NEGATIVE (Neg); PH,URINE 5.5 (4.8-8.0); PROTEIN,URINE NEGATIVE (Neg); UROBILINOGEN,URINE 0.2 E.U/dL (0.2-1.0)
[2023-01-07 23:19] LABS: UA COLLECTION TYPE CLN CATCH MIDSTREAM
[2023-01-08 00:23] VITALS: TEMP 98.1
--- NOTE | 2023-01-08 04:06 | NUR ---
reposition pt for comfort with warm blankets and a pillow
[2023-01-08] MEDS ORDERED: acetaminophen 325mg tablet PO ONE (04:15)
--- NOTE | 2023-01-08 06:35 | NUR ---
Call from [facility] transfer center requesting COVID swab and result to be faxed. Patient upset, states he will leave if he has to wait all day. Updated on plan of care, call light in hand.
[2023-01-08] MEDS ORDERED: ampicillin/sulbac 3gm/NS 100ml 100 ML IV ONE (07:00)
--- NOTE | 2023-01-08 07:50 | NUR ---
Covid result faxed to [facility] per transfer center request.
--- NOTE | 2023-01-08 08:00 | NUR ---
Patient states he spoke with [facility] who confirmed for him that they are waiting on a bed for him. Patient states he told them he will leave in 1 and a half hours if they don't get a room for him. Call light in hand.
[2023-01-08 09:35] VITALS: BP 140/104; PULSE 60; RESP 16; O2SAT 100
== END 2023-01-08 09:36 | disposition home or self-care (01) ==
LOC: ER 21:00
DX: L03.316 Cellulitis of umbilicus (principal); Z20.822 Contact with and (suspected) exposure to COVID-19; F17.200 Nicotine dependence, unspecified, uncomplicated; I11.9 Hypertensive heart disease without heart failure; I51.9 Heart disease, unspecified; F31.9 Bipolar disorder, unspecified; K21.9 Gastro-esophageal reflux disease without esophagitis; G89.29 Other chronic pain; M54.9 Dorsalgia, unspecified; F12.10 Cannabis abuse, uncomplicated; F15.10 Other stimulant abuse, uncomplicated; Z88.5 Allergy status to narcotic agent; Z88.1 Allergy status to other antibiotic agents; Z79.899 Other long term (current) drug therapy
CPT/HCPCS: 36415; 80053; 81003; 85025; 87811; 96365; 99285; J0295

== ENCOUNTER 2023-04-21 14:13 | Emergency (ER) | payer MEDICARE, MEDICAID ==
[~2023-04-21] VITALS: Ht 175.3 cm; Wt 81.2 kg
[~2023-04-21 14:13] MED LIST changes: -AMOX-117 PO; -PROM6.2525 PO; +PROM6.2527 PO
[2023-04-21 14:28] VITALS: BP 129/85; PULSE 64; RESP 19; TEMP 97.9; O2SAT 100
[2023-04-21 15:02] LABS: BILIRUBIN,URINE NEGATIVE (Neg); CLARITY,URINE CLEAR (Clear); COLOR,URINE YELLOW (Yellow); GLUCOSE, URINE NEGATIVE (Neg); KETONES,URINE NEGATIVE (Neg); LEUKOCYTE ESTERASE ,URINE NEGATIVE (Neg); NITRITES, URINE NEGATIVE (Neg); OCCULT BLOOD,URINE NEGATIVE (Neg); PROTEIN,URINE NEGATIVE (Neg); UROBILINOGEN,URINE 0.2 E.U/dL (0.2-1.0)
[2023-04-21 15:08] LABS: UA COLLECTION TYPE CLN CATCH MIDSTREAM
[2023-04-21 15:24] LABS: BASOPHILS % (AUTO) 0.6 % (0-1); EOSINOPHILS # (AUTO) 0.1 X10'3 (0-0.9); EOSINOPHILS % (AUTO) 1.5 % (0-6); HEMATOCRIT 53.9 % (42.0-52.0); HEMOGLOBIN 17.8 g/dl (14.0-17.9); LYMPHOCYTES # (AUTO) 0.9 X10'3 (1.1-4.8); MEAN CORPUSCULAR HEMOGLOBIN 30.1 PG (27.0-31.0); MEAN CORPUSCULAR HGB CONC 33.1 g/dL (33.0-36.5); MEAN PLATELET VOLUME 8.9 FL (7.4-10.4); MONOCYTES # (AUTO) 0.5 X10'3 (0-0.9); NEUTROPHILS % (AUTO) 78.9 % (42-75); PLATELET COUNT 230 X10'3 (140-440); RED BLOOD COUNT 5.92 X10'6 (4.70-6.10); RED CELL DISTRIBUTION WIDTH 14.5 % (11.5-14.5); WHITE BLOOD COUNT 7.6 X10'3 (4.5-11.0)
[2023-04-21 15:43] LABS: ALANINE AMINOTRANSFERASE 20 U/L (12-78); ALBUMIN 4.1 G/DL (3.4-5.0); ALBUMIN/GLOBULIN RATIO 1.1 (1.1-1.5); ALKALINE PHOSPHATASE 90 IU/L (46-116); AMYLASE 49 U/L (25-115); ANION GAP 10 (8-16); ASPARTATE AMINO TRANSFERASE 16 U/L (10-37); BILIRUBIN,TOTAL 0.5 MG/DL (0.1-1.0); BLOOD UREA NITROGEN 15 MG/DL (7-18); CALCIUM 9.6 MG/DL (8.5-10.1); CHLORIDE 102 MMOL/L (99-107); CREATININE 0.94 MG/DL (0.60-1.10); GLUCOSE 84 MG/DL (70-104); LIPASE 24 U/L (16-77); POTASSIUM 4.4 MMOL/L (3.5-5.1); SODIUM 139 MMOL/L (135-145); TOTAL CARBON DIOXIDE 26.6 MMOL/L (24-32); eCRCL 102 ML/MIN; eGFR 88 ML/MIN
== END 2023-04-21 20:06 | disposition left against medical advice (07) ==
LOC: ER 14:14
DX: R10.9 Unspecified abdominal pain (principal); R11.2 Nausea with vomiting, unspecified; Z53.21 Procedure and treatment not carried out due to patient leaving prior to being seen by health care provider
CPT/HCPCS: 36415; 80053; 81003; 82150; 83690; 85025; 99281

== ENCOUNTER 2023-04-22 08:03 | Emergency (ER) | payer MEDICARE, MEDICAID ==
[~2023-04-22] VITALS: Ht 175.3 cm; Wt 81.8 kg
[2023-04-22 08:18] VITALS: BP 147/108; PULSE 60; RESP 16; TEMP 97.8; O2SAT 99
== END 2023-04-22 10:05 | disposition left against medical advice (07) ==
LOC: ER 08:04
DX: R79.9 Abnormal finding of blood chemistry, unspecified (principal); Z53.21 Procedure and treatment not carried out due to patient leaving prior to being seen by health care provider
CPT/HCPCS: 99281

== ENCOUNTER 2023-05-28 13:24 | Emergency (ER) | payer MEDICARE, MEDICAID ==
[~2023-05-28] VITALS: Ht 175.3 cm; Wt 81.8 kg
[2023-05-28] MEDS ORDERED: LIDOcaine 1% 30ml preserv. free vial SQ STA (14:19)
[2023-05-28] MEDS ORDERED: cephalexin 500mg capsule PO ONE (15:10)
[2023-05-28] MEDS ORDERED: LIDOcaine 1% W/epiNEPHrine 1:100,000 20ml vial SQ ONE (16:00)
[2023-05-28] MEDS ORDERED: tranexamic acid 100mg/ml inj. TP ONE (16:00)
[2023-05-28] MEDS ORDERED: LIDOCAINE 1%/EPI 1:100,000 inj. 10 ML multi-dose vial SQ ONE (16:10)
[2023-05-28] MEDS ORDERED: MORP15TA PO (16:28)
[2023-05-28] MEDS ORDERED: CEPH-585 PO (16:28)
[2023-05-28 17:15] VITALS: BP 126/80; PULSE 90; RESP 18; TEMP 98.9; O2SAT 97
== END 2023-05-28 17:41 | disposition home or self-care (01) ==
LOC: ER 13:25
DX: S61.211A Laceration without foreign body of left index finger without damage to nail, initial encounter (principal); I11.0 Hypertensive heart disease with heart failure; K21.9 Gastro-esophageal reflux disease without esophagitis; G89.29 Other chronic pain; M54.9 Dorsalgia, unspecified; W45.8XXA Other foreign body or object entering through skin, initial encounter; Y93.89 Activity, other specified; Y92.89 Other specified places as the place of occurrence of the external cause; Y99.8 Other external cause status
CPT/HCPCS: 12001; 73140; 99283; A6223; A6449

== ENCOUNTER 2023-07-28 13:37 | Emergency (ER) | payer MEDICARE, MEDICAID ==
[~2023-07-28] VITALS: Ht 175.3 cm; Wt 77.3 kg
[2023-07-28 14:47] LABS: BASOPHILS # (AUTO) 0.1 X10'3 (0-0.2); BASOPHILS % (AUTO) 0.3 % (0-1); EOSINOPHILS # (AUTO) 0.1 X10'3 (0-0.9); EOSINOPHILS % (AUTO) 0.5 % (0-6); HEMATOCRIT 49.3 % (42.0-52.0); HEMOGLOBIN 16.3 g/dl (14.0-17.9); LYMPHOCYTES # (AUTO) 0.9 X10'3 (1.1-4.8); LYMPHOCYTES % (AUTO) 5.3 % (21-51); MEAN CORPUSCULAR HEMOGLOBIN 30.2 PG (27.0-31.0); MEAN CORPUSCULAR HGB CONC 33.1 g/dL (33.0-36.5); MEAN CORPUSCULAR VOLUME 91.5 FL (78-98); MEAN PLATELET VOLUME 9.5 FL (7.4-10.4); MONOCYTES # (AUTO) 1.3 X10'3 (0-0.9); MONOCYTES % (AUTO) 8.1 % (2-12); NEUTROPHILS # (AUTO) 14.2 X10'3 (1.8-7.7); NEUTROPHILS % (AUTO) 85.8 % (42-75); PLATELET COUNT 219 X10'3 (140-440); RED BLOOD COUNT 5.38 X10'6 (4.70-6.10); RED CELL DISTRIBUTION WIDTH 13.8 % (11.5-14.5); WHITE BLOOD COUNT 16.6 X10'3 (4.5-11.0)
[2023-07-28 15:03] LABS: ANION GAP 2 (8-16); BLOOD UREA NITROGEN 15 MG/DL (7-18); CALCIUM 8.7 MG/DL (8.5-10.1); CHLORIDE 105 MMOL/L (99-107); GLUCOSE 98 MG/DL (70-104); POTASSIUM 4.5 MMOL/L (3.5-5.1); SODIUM 143 MMOL/L (135-145); TOTAL CARBON DIOXIDE 35.9 MMOL/L (24-32); eCRCL 96 ML/MIN; eGFR 82 ML/MIN
[2023-07-28 15:04] LABS: ETHANOL < 10 MG/DL (<10)
[2023-07-28 16:08] VITALS: BP 132/96; PULSE 101; RESP 16; TEMP 97.6; O2SAT 98
== END 2023-07-28 20:05 | disposition left against medical advice (07) ==
LOC: ER 13:38
DX: R56.9 Unspecified convulsions (principal); Z53.21 Procedure and treatment not carried out due to patient leaving prior to being seen by health care provider
CPT/HCPCS: 36415; 70450; 71045; 80048; 80320; 82948; 84484; 85025; 93005; 99281

== ENCOUNTER 2023-11-27 11:10 | Emergency (ER) | payer MEDICARE, MEDICAID ==
[~2023-11-27] VITALS: Ht 175.3 cm; Wt 76.0 kg
[2023-11-27 12:06] LABS: BASOPHILS % (AUTO) 0.1 % (0-1); EOSINOPHILS # (AUTO) 0.1 X10'3 (0-0.9); EOSINOPHILS % (AUTO) 0.4 % (0-6); HEMATOCRIT 42.2 % (42.0-52.0); HEMOGLOBIN 13.9 g/dl (14.0-17.9); LYMPHOCYTES # (AUTO) 0.9 X10'3 (1.1-4.8); LYMPHOCYTES % (AUTO) 5.4 % (21-51); MEAN CORPUSCULAR HEMOGLOBIN 30.9 PG (27.0-31.0); MEAN CORPUSCULAR HGB CONC 32.9 g/dL (33.0-36.5); MEAN CORPUSCULAR VOLUME 93.8 FL (78-98); MONOCYTES # (AUTO) 1.3 X10'3 (0-0.9); MONOCYTES % (AUTO) 8.1 % (2-12); NEUTROPHILS # (AUTO) 14.2 X10'3 (1.8-7.7); PLATELET COUNT 325 X10'3 (140-440); RED CELL DISTRIBUTION WIDTH 12.6 % (11.5-14.5); WHITE BLOOD COUNT 16.5 X10'3 (4.5-11.0)
[2023-11-27 12:12] LABS: ALBUMIN 3.6 G/DL (3.4-5.0); ANION GAP 11 (8-16); BLOOD UREA NITROGEN 24 MG/DL (7-18); BUN/CREATININE RATIO 21.6 (10.0-20.0); CALCIUM 9.4 MG/DL (8.5-10.1); CHLORIDE 101 MMOL/L (99-107); CREATININE 1.11 MG/DL (0.60-1.10); GLUCOSE 116 MG/DL (70-104); POTASSIUM 4.4 MMOL/L (3.5-5.1); SODIUM 135 MMOL/L (135-145); TOTAL CARBON DIOXIDE 23.4 MMOL/L (24-32); eCRCL 86 ML/MIN; eGFR 72 ML/MIN
[2023-11-27] MEDS ORDERED: GABA-530 PO (12:43)
[2023-11-27] MEDS ORDERED: NIFE-33 PO (12:43)
[2023-11-27] MEDS ORDERED: LISI5TAB22 PO (12:43)
[2023-11-27] MEDS ORDERED: PRE5T PO (12:43)
[2023-11-27] MEDS ORDERED: ALBU18HF2 (12:43)
[2023-11-27] MEDS ORDERED: ESCI-8 PO (12:43)
[2023-11-27] MEDS ORDERED: MYCO180T PO (12:43)
[2023-11-27] MEDS ORDERED: LACT-9 PO (12:43)
[2023-11-27] MEDS ORDERED: TACR0.5C3 (12:43)
[2023-11-27] MEDS ORDERED: DEXL60CA6 (12:43)
[2023-11-27 14:01] LABS: BILIRUBIN,URINE SMALL (Neg); CLARITY,URINE CLEAR (Clear); GLUCOSE, URINE NEGATIVE (Neg); KETONES,URINE 15 mg/dl (Neg); LEUKOCYTE ESTERASE ,URINE NEGATIVE (Neg); NITRITES, URINE NEGATIVE (Neg); OCCULT BLOOD,URINE NEGATIVE (Neg); PROTEIN,URINE NEGATIVE (Neg)
[2023-11-27 14:03] LABS: UA COLLECTION TYPE CLN CATCH MIDSTREAM
[2023-11-27 14:04] LABS: COLOR,URINE Dark Yellow (Yellow)
[2023-11-27 14:07] LABS: PRO BRAIN NATRIURETIC PEPTIDE 136 PG/ML (0-125)
[2023-11-27 14:28] VITALS: BP 125/79; PULSE 70; RESP 16; TEMP 97.5; O2SAT 96
== END 2023-11-27 14:31 | disposition home or self-care (01) ==
LOC: ER 11:11
DX: D84.821 Immunodeficiency due to drugs (principal); R09.89 Other specified symptoms and signs involving the circulatory and respiratory systems; I11.0 Hypertensive heart disease with heart failure; I50.9 Heart failure, unspecified; E78.00 Pure hypercholesterolemia, unspecified; G89.29 Other chronic pain; M54.9 Dorsalgia, unspecified; F41.9 Anxiety disorder, unspecified; F32.A Depression, unspecified; F12.90 Cannabis use, unspecified, uncomplicated; F15.90 Other stimulant use, unspecified, uncomplicated; Z94.0 Kidney transplant status; Z88.1 Allergy status to other antibiotic agents; Z88.8 Allergy status to other drugs, medicaments and biological substances; Z79.82 Long term (current) use of aspirin; Z79.899 Other long term (current) drug therapy; Z79.52 Long term (current) use of systemic steroids; Z98.890 Other specified postprocedural states; Z95.1 Presence of aortocoronary bypass graft
CPT/HCPCS: 36415; 71045; 80048; 81003; 83605; 83880; 84145; 85025; 87040; 93005; 99285; J7030

== ENCOUNTER 2023-12-29 09:36 | Emergency (ER) | payer MEDICARE, MEDICAID ==
[~2023-12-29] VITALS: Ht 172.7 cm; Wt 81.8 kg
[~2023-12-29 09:36] MED LIST changes: +ALBU18HF2; +DEXL60CA18; -DILT300C23 PO; +ESCI-8 PO; +GABA-530 PO; -HYDR100T27 PO; +LACT-9 PO; -LISI20TA28 PO; +LISI5TAB22 PO; -MINO10TA16 PO; +MYCO180T PO; +NIFE-33 PO; -PHO667C PO; +PRE5T PO; +TACR0.5C3
[2023-12-29] MEDS: LIDOcaine/epinephrine/tetracaine TOPICAL sol 3 ML syringe TOP ONE (12:31)
[2023-12-29] MEDS: LIDOcaine 1% W/epiNEPHrine 1:100,000 20ml vial SQ ONE (13:07)
[2023-12-29 13:19] VITALS: BP 109/76; PULSE 60; RESP 15; TEMP 98.3; O2SAT 98
== END 2023-12-29 13:23 | disposition home or self-care (01) ==
LOC: ER 09:36
DX: L02.01 Cutaneous abscess of face (principal); I13.0 Hypertensive heart and chronic kidney disease with heart failure and stage 1 through stage 4 chronic kidney disease, or unspecified chronic kidney disease; I50.9 Heart failure, unspecified; E78.00 Pure hypercholesterolemia, unspecified; K21.9 Gastro-esophageal reflux disease without esophagitis; N18.9 Chronic kidney disease, unspecified; F41.9 Anxiety disorder, unspecified; F32.A Depression, unspecified; Z88.1 Allergy status to other antibiotic agents; Z88.5 Allergy status to narcotic agent; Z91.041 Radiographic dye allergy status; Z79.82 Long term (current) use of aspirin; Z79.899 Other long term (current) drug therapy; Z79.1 Long term (current) use of non-steroidal anti-inflammatories (NSAID); Z95.1 Presence of aortocoronary bypass graft
CPT/HCPCS: 10060; 99282; A6407; J3490

== ENCOUNTER 2024-01-01 09:14 | Emergency (ER) | payer MEDICARE, MEDICAID ==
[~2024-01-01] VITALS: Ht 175.3 cm; Wt 77.8 kg
[2024-01-01] MEDS ORDERED: CEPH-585 PO (11:27)
[2024-01-01] MEDS ORDERED: SULF1TAB49 PO (11:27)
[2024-01-01] MEDS: LIDOcaine 1% 30ml preserv. free vial IJ ONE (11:47)
[2024-01-01 12:00] VITALS: BP 119/81; PULSE 60; RESP 16; TEMP 98.1; O2SAT 99
== END 2024-01-01 12:01 | disposition home or self-care (01) ==
LOC: ER 09:15
DX: H44.001 Unspecified purulent endophthalmitis, right eye (principal); E78.00 Pure hypercholesterolemia, unspecified; K21.9 Gastro-esophageal reflux disease without esophagitis; I13.0 Hypertensive heart and chronic kidney disease with heart failure and stage 1 through stage 4 chronic kidney disease, or unspecified chronic kidney disease; N18.9 Chronic kidney disease, unspecified; I50.9 Heart failure, unspecified; G89.29 Other chronic pain; M54.9 Dorsalgia, unspecified; F41.9 Anxiety disorder, unspecified; F12.90 Cannabis use, unspecified, uncomplicated; F15.90 Other stimulant use, unspecified, uncomplicated; F32.A Depression, unspecified; Z95.1 Presence of aortocoronary bypass graft; Z56.0 Unemployment, unspecified; Z88.1 Allergy status to other antibiotic agents; Z88.8 Allergy status to other drugs, medicaments and biological substances; Z79.82 Long term (current) use of aspirin; Z79.2 Long term (current) use of antibiotics; Z79.899 Other long term (current) drug therapy; Z98.890 Other specified postprocedural states
CPT/HCPCS: 10060; 99283; A6402; Z7610; A6449

== ENCOUNTER 2024-02-06 09:36 | Emergency (ER) | payer MEDICARE, MEDICAID ==
[~2024-02-06] VITALS: Ht 175.3 cm; Wt 77.2 kg
--- NOTE | 2024-02-06 11:04 | NUR ---
Patient laying in bed NAD.
[2024-02-06] MEDS: HYDROcodone/acetaminophen 10/325mg tab PO ONE (11:07)
[2024-02-06 11:45] VITALS: BP 124/84; PULSE 68; RESP 18; TEMP 98.3; O2SAT 98
== END 2024-02-06 11:47 | disposition home or self-care (01) ==
LOC: ER 09:37
DX: S86.011A Strain of right Achilles tendon, initial encounter (principal); F12.90 Cannabis use, unspecified, uncomplicated; F15.90 Other stimulant use, unspecified, uncomplicated; E78.00 Pure hypercholesterolemia, unspecified; K21.9 Gastro-esophageal reflux disease without esophagitis; F41.9 Anxiety disorder, unspecified; F32.A Depression, unspecified; G89.29 Other chronic pain; M54.9 Dorsalgia, unspecified; I13.2 Hypertensive heart and chronic kidney disease with heart failure and with stage 5 chronic kidney disease, or end stage renal disease; N18.6 End stage renal disease; I50.9 Heart failure, unspecified; Z88.1 Allergy status to other antibiotic agents; Z88.8 Allergy status to other drugs, medicaments and biological substances; Z79.82 Long term (current) use of aspirin; Z79.899 Other long term (current) drug therapy; Z79.52 Long term (current) use of systemic steroids; Z98.890 Other specified postprocedural states; Z56.0 Unemployment, unspecified; X58.XXXA Exposure to other specified factors, initial encounter; Y93.89 Activity, other specified; Y92.89 Other specified places as the place of occurrence of the external cause; Y99.8 Other external cause status
CPT/HCPCS: 73590; 99283; A6449

== ENCOUNTER 2024-02-22 06:37 | Emergency (ER) | payer MEDICARE, MEDICAID ==
[~2024-02-22] VITALS: Ht 175.3 cm; Wt 72.7 kg
[2024-02-22 06:39] VITALS: BP 159/100; PULSE 57; TEMP 97.7; O2SAT 97
[2024-02-22] MEDS ORDERED: DICL50TA8 PO (07:22)
[2024-02-22] MEDS: ketorolac trometh 15mg/ml vial 15 MG/ML ML IM ONE (07:36)
[2024-02-22 08:16] VITALS: RESP 16
== END 2024-02-22 08:18 | disposition home or self-care (01) ==
LOC: ER 06:38
DX: S86.011A Strain of right Achilles tendon, initial encounter (principal); X58.XXXA Exposure to other specified factors, initial encounter; Y93.89 Activity, other specified; Y92.89 Other specified places as the place of occurrence of the external cause; Y99.8 Other external cause status; Z88.1 Allergy status to other antibiotic agents; Z88.5 Allergy status to narcotic agent; Z91.041 Radiographic dye allergy status; Z79.82 Long term (current) use of aspirin; Z79.899 Other long term (current) drug therapy
CPT/HCPCS: 29515; 96372; 99283; A6449; J1885

== ENCOUNTER → 2024-02-26 | Outpatient (CLI) | payer MEDICARE, MEDICAID ==
[~2024-02-26] MED LIST changes: +DICL50TA8 PO
== END | disposition home or self-care (01) ==
LOC: MRI02 15:00
PROVIDERS: ATTEND Podiatrist Foot & Ankle Surgery
DX: M25.471 Effusion, right ankle (principal)
CPT/HCPCS: 73721

== ENCOUNTER 2024-12-05 18:29 | Emergency (ER) | payer MEDICARE, MEDICAID ==
[~2024-12-05] VITALS: Ht 175.3 cm; Wt 76.3 kg
[2024-12-05 18:31] VITALS: BP 132/79; PULSE 84; RESP 18; O2SAT 98
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
[2024-12-05 20:12] VITALS: TEMP 99.2
== END 2024-12-05 20:14 | disposition home or self-care (01) ==
LOC: ER 18:30
DX: S01.01XA Laceration without foreign body of scalp, initial encounter (principal); E78.00 Pure hypercholesterolemia, unspecified; F31.9 Bipolar disorder, unspecified; I13.2 Hypertensive heart and chronic kidney disease with heart failure and with stage 5 chronic kidney disease, or end stage renal disease; I50.9 Heart failure, unspecified; N18.6 End stage renal disease; F41.9 Anxiety disorder, unspecified; F12.90 Cannabis use, unspecified, uncomplicated; F15.90 Other stimulant use, unspecified, uncomplicated; Z88.1 Allergy status to other antibiotic agents; Z88.5 Allergy status to narcotic agent; Z88.8 Allergy status to other drugs, medicaments and biological substances; Z95.1 Presence of aortocoronary bypass graft; Z98.890 Other specified postprocedural states; Z99.2 Dependence on renal dialysis; Z79.82 Long term (current) use of aspirin; X58.XXXA Exposure to other specified factors, initial encounter; Y93.89 Activity, other specified; Y92.89 Other specified places as the place of occurrence of the external cause; Y99.8 Other external cause status
CPT/HCPCS: 12001; 99282

== ENCOUNTER 2025-05-31 23:53 | Emergency (ER) | payer MEDICAID, MEDICARE ==
[~2025-05-31] VITALS: Ht 175.3 cm; Wt 83.9 kg
[2025-06-01] MEDS: LIDOcaine 1% W/epiNEPHrine 1:100,000 20ml vial SQ ONE (02:37)
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
[2025-06-01] MEDS ORDERED: CEPH250T PO (04:25)
[2025-06-01] MEDS: HYDROcodone/acetaminophen 10/325mg tab PO ONE (04:33)
[2025-06-01 05:08] VITALS: BP 140/89; PULSE 89; RESP 20; TEMP 98.6; O2SAT 97
== END 2025-06-01 05:10 ==
LOC: ER 23:54
DX: S51.811A Laceration without foreign body of right forearm, initial encounter (principal); F17.200 Nicotine dependence, unspecified, uncomplicated; F15.90 Other stimulant use, unspecified, uncomplicated; F12.90 Cannabis use, unspecified, uncomplicated; E78.00 Pure hypercholesterolemia, unspecified; F31.9 Bipolar disorder, unspecified; G89.29 Other chronic pain; K21.9 Gastro-esophageal reflux disease without esophagitis; F41.9 Anxiety disorder, unspecified; I13.2 Hypertensive heart and chronic kidney disease with heart failure and with stage 5 chronic kidney disease, or end stage renal disease; N18.6 End stage renal disease; Z87.19 Personal history of other diseases of the digestive system; Z88.1 Allergy status to other antibiotic agents; Z88.5 Allergy status to narcotic agent; Z95.1 Presence of aortocoronary bypass graft; Z98.890 Other specified postprocedural states; Z99.2 Dependence on renal dialysis; Z79.899 Other long term (current) drug therapy; Z79.82 Long term (current) use of aspirin; Z56.0 Unemployment, unspecified; X58.XXXA Exposure to other specified factors, initial encounter; Y93.89 Activity, other specified; Y92.89 Other specified places as the place of occurrence of the external cause; Y99.8 Other external cause status
CPT/HCPCS: 12004; 99284; A6223; 99283; A6446; A6449